=== PATIENT | female | born 1935 | race Caucasian/White ===

== ENCOUNTER 2018-09-07 11:40 | Outpatient (CLI) | payer MEDICARE, SELFPAY ==
[2018-09-07 13:41] LABS: ALT 27 U/L (12-78); AST 22 U/L (15-37); Albumin 3.6 g/dL (3.4-5.0); Alkaline Phosphatase 110 U/L (46-116); Anion Gap 11.2 mmol/L (3-11); BUN 18 mg/dL (7-18); Bilirubin, Total 0.3 mg/dL (0.2-1.0); CO2 24.8 mmol/L (21.0-32.0); CREATININE 1.07 mg/dL (0.55-1.02); Calcium 9.2 mg/dL (8.5-10.1); Chloride 104 mmol/L (98-107); Cholesterol 209 mg/dL (50-200); Estimated GFR 49.34 (mL/min/1.73m2); Glucose 95 mg/dL (70-100); HDL Cholesterol 46 mg/dL (40-60); LDL CHOLESTEROL 87 mg/dL (<100); Potassium 3.7 mmol/L (3.5-5.1); Sodium 140 mmol/L (136-145); Total Protein 7.8 g/dL (6.4-8.2); Triglyceride 461 mg/dL (30-150); Vitamin B12 453 pg/mL (193-986)
== END 2018-09-07 12:00 ==
PROVIDERS: PCP Family Medicine; Visit Provider Family Medicine
DX: I10 Essential (primary) hypertension (principal); E78.5 Hyperlipidemia, unspecified; E53.8 Deficiency of other specified B group vitamins
CPT/HCPCS: 36415; 80053; 80061; 83721; 82607

== ENCOUNTER 2019-05-07 11:02 | Outpatient (CLI) | payer MEDICARE, SELFPAY ==
--- NOTE | 2019-05-07 11:00 | DI.RAD_ITS ---
EXAM: XR WRIST RT COMPLETE INDICATION: pain rt wrist, M25.531, pain unspecified, R52. COMPARISON: No exams were available for comparison TECHNIQUE: 2D digital imaging was performed. FINDINGS: There is [id number] narrowing of the radiocarpal joint space. Chondrocalcinosis is faintly see n. There are degenerative changes at the scaphoid trapezium trapezoid joint as well as at the trapez ium 1st carpal metacarpal joint. IMPRESSION: Degenerative changes greatest at the 1st carpal metacarpal joint.
[2019-05-07 12:06] LABS: Abs Immature Grans 0.03 k/cumm (0.0-0.09); Absolute Basophil Count 0.03 k/cumm (0.0-0.2); Absolute Eosinophil Count 0.23 k/cumm (0.0-0.7); Absolute Lymphocyte Count 2.68 k/cumm (1.2-3.4); Absolute Monocyte Count 0.58 k/cumm (0.11-0.7); Absolute Neutrophil Count 7.31 k/cumm (1.2-6.7); Basophils % 0.3; Eosinophils % 2.1; HCT 40.4 % (36.0-46.0); HGB 13.6 g/dL (12.0-15.5); Immature Grans % 0.3; Lymphocytes % 24.7; Mean Corp. HGB Concentration 33.7 g/dL (32.0-36.0); Mean Corpuscular Volume 83.3 fL (80-95); Mean Platelet Volume 10.4 fL (8.0-11.0); Monocytes % 5.3; Neutrophils % 67.3; Platelet Count 237 x1000/uL (130-400); RBC 4.85 m/cumm (4.00-5.20); RBC Distribution Width 13.4 % (11.7-14.6); White Blood Cell Count 10.86 k/cumm (4.4-10.8)
[2019-05-07 13:18] LABS: ESR 29 mm/hr (0-30)
[2019-05-07 13:22] LABS: Uric Acid 4.8 mg/dL (2.6-6.0)
== END 2019-05-07 11:22 ==
PROVIDERS: PCP Family Medicine; Visit Provider Internal Medicine
DX: M25.531 Pain in right wrist (principal); M18.11 Unilateral primary osteoarthritis of first carpometacarpal joint, right hand; M19.041 Primary osteoarthritis, right hand
CPT/HCPCS: 36415; 85652; 73110; 84550; 85025

== ENCOUNTER 2019-09-11 04:36 | Outpatient (CLI) | payer MEDICARE, SELFPAY ==
[2019-09-11 11:22] LABS: Abs Immature Grans 0.03 k/cumm (0.0-0.09); Absolute Eosinophil Count 0.15 k/cumm (0.0-0.7); Absolute Lymphocyte Count 2.54 k/cumm (1.2-3.4); Basophils % 0.2; Eosinophils % 1.2; HCT 40.7 % (36.0-46.0); HGB 13.3 g/dL (12.0-15.5); Immature Grans % 0.2 %; Lymphocytes % 20.5; Mean Corp. HGB Concentration 32.7 g/dL (32.0-36.0); Mean Corpuscular Hemoglobin 26.9 pg (27.0-33.0); Mean Corpuscular Volume 82.4 fL (80-95); Mean Platelet Volume 9.7 fL (8.0-11.0); Monocytes % 6.4; Neutrophils % 71.5; Platelet Count 315 x1000/uL (130-400); RBC 4.94 m/cumm (4.00-5.20); RBC Distribution Width 13.7 % (11.7-14.6); White Blood Cell Count 12.41 k/cumm (4.4-10.8)
[2019-09-11 11:24] LABS: Absolute Basophil Count 0.02 k/cumm (0.0-0.2); Absolute Monocyte Count 0.79 k/cumm (0.11-0.7); Absolute Neutrophil Count 8.87 k/cumm (1.2-6.7)
[2019-09-11 12:37] LABS: ALT 23 U/L (14-59); AST 16 U/L (15-37); Albumin 3.4 g/dL (3.4-5.0); Alkaline Phosphatase 122 U/L (46-116); Anion Gap 11.9 mmol/L (3-11); BUN 11 mg/dL (7-18); Bilirubin, Total 0.3 mg/dL (0.2-1.0); CO2 24.1 mmol/L (21.0-32.0); Calcium 9.1 mg/dL (8.5-10.1); Calculated LDL 55 mg/dL (<100); Chloride 108 mmol/L (98-107); Cholesterol 155 mg/dL (<200); Estimated GFR 53.21 (mL/min/1.73m2); Glucose 84 mg/dL (74-106); HDL Cholesterol 44 mg/dL (40-60); Potassium 3.8 mmol/L (3.5-5.1); Sodium 144 mmol/L (136-145); Total Protein 7.7 g/dL (6.4-8.2); Triglyceride 284 mg/dL (<150)
[2019-09-11 12:46] LABS: Uric Acid 5.7 mg/dL (2.6-6.0)
[2019-09-11 12:58] LABS: ESR 59 mm/hr (0-30)
== END 2019-09-11 04:56 ==
PROVIDERS: PCP Family Medicine; Visit Provider Family Medicine
DX: E78.5 Hyperlipidemia, unspecified (principal); I10 Essential (primary) hypertension; M25.50 Pain in unspecified joint
CPT/HCPCS: 36415; 80053; 80061; 85652; 84550; 85025; 86140

== ENCOUNTER 2019-10-30 03:19 | Outpatient (CLI) | payer MEDICARE, SELFPAY ==
[2019-10-30 13:09] LABS: Abs Immature Grans 0.05 k/cumm (0.0-0.09); Absolute Basophil Count 0.02 k/cumm (0.0-0.2); Absolute Eosinophil Count 0.11 k/cumm (0.0-0.7); Absolute Lymphocyte Count 1.89 k/cumm (1.2-3.4); Absolute Monocyte Count 0.87 k/cumm (0.11-0.7); Absolute Neutrophil Count 7.53 k/cumm (1.2-6.7); Basophils % 0.2; Eosinophils % 1.1; HCT 42.3 % (36.0-46.0); HGB 13.6 g/dL (12.0-15.5); Immature Grans % 0.5 %; Lymphocytes % 18.1; Mean Corp. HGB Concentration 32.2 g/dL (32.0-36.0); Mean Corpuscular Volume 84.1 fL (80-95); Mean Platelet Volume 9.6 fL (8.0-11.0); Monocytes % 8.3; Neutrophils % 71.8; Platelet Count 240 x1000/uL (130-400); RBC 5.03 m/cumm (4.00-5.20); White Blood Cell Count 10.47 k/cumm (4.4-10.8)
[2019-10-30 13:53] LABS: ESR 48 mm/hr (0-30)
== END 2019-10-30 03:39 ==
PROVIDERS: PCP Family Medicine; Visit Provider Family Medicine
DX: M25.50 Pain in unspecified joint (principal); R70.0 Elevated erythrocyte sedimentation rate
CPT/HCPCS: 36415; 85652; 85025

== ENCOUNTER 2019-11-22 01:31 | Outpatient (CLI) | payer MEDICARE, SELFPAY ==
--- NOTE | 2019-11-22 14:15 | DI.DEXA_ITS ---
EXAM: XR DEXA BONE DENSITY W/WO RICHI CLINICAL HISTORY: CHRONIC PREDNISONE USE, M81.0 OSTEOPOROSIS TECHNIQUE: COMPARISON: No exams were available for comparison FINDINGS: Lateral Spine Image: Unremarkable. No compression deformities identified. Left hip: Total T-Score: -1.9 Total Z-Score: 0.2 T- and Z-scores: Consistent with osteopenia. Lumbar Spine: Total T-Score: -0.9 Total Z-Score: 1.8 T- and Z-scores: Within normal limits. IMPRESSION: No evidence of osteoporosis.
== END 2019-11-22 01:51 ==
PROVIDERS: PCP Family Medicine; Visit Provider Family Medicine
DX: M81.0 Age-related osteoporosis without current pathological fracture (principal); M85.88 Other specified disorders of bone density and structure, other site; Z79.52 Long term (current) use of systemic steroids
CPT/HCPCS: 77080

== ENCOUNTER 2019-12-12 04:21 | Outpatient (CLI) | payer MEDICARE, SELFPAY ==
[2019-12-12 10:29] LABS: ESR 44 mm/hr (0-30)
== END 2019-12-12 04:41 ==
PROVIDERS: PCP Family Medicine; Visit Provider Family Medicine
DX: R70.0 Elevated erythrocyte sedimentation rate (principal)
CPT/HCPCS: 36415; 85652

== ENCOUNTER 2020-03-25 01:27 | Outpatient (CLI) | payer MEDICARE, SELFPAY ==
[2020-03-25 11:05] LABS: ESR 25 mm/hr (0-30)
== END 2020-03-25 01:47 ==
PROVIDERS: PCP Family Medicine; Visit Provider Family Medicine
DX: R70.0 Elevated erythrocyte sedimentation rate (principal)
CPT/HCPCS: 36415; 85652

== ENCOUNTER 2020-07-07 05:15 | Outpatient (CLI) | payer MEDICARE, SELFPAY ==
[2020-07-07 10:49] LABS: ESR 54 mm/hr (0-30)
[2020-07-07 11:18] LABS: Vitamin D 25 Total 21.4 ng/ml (30-100)
== END 2020-07-07 05:35 ==
PROVIDERS: PCP Family Medicine; Visit Provider Family Medicine
DX: R70.0 Elevated erythrocyte sedimentation rate (principal); M25.59 Pain in other specified joint; Z79.52 Long term (current) use of systemic steroids
CPT/HCPCS: 36415; 82306; 85652

== ENCOUNTER 2020-08-21 03:39 | Outpatient (CLI) | payer MEDICARE, SELFPAY ==
[2020-08-21 11:05] LABS: Abs Immature Grans 0.08 10^3/uL (0.0-0.06); Absolute Basophil Count 0.06 10^3/uL (0.0-0.2); Absolute Eosinophil Count 0.16 10^3/uL (0.0-0.7); Absolute Lymphocyte Count 3.97 10^3/uL (1.2-3.4); Absolute Monocyte Count 0.87 10^3/uL (0.1-0.8); Absolute Neutrophil Count 10.44 10^3/uL (1.2-6.7); Basophils % 0.4; HCT 43.7 % (36.0-46.0); HGB 13.7 g/dL (11.2-15.7); Immature Grans % 0.5; Lymphocytes % 25.5; MCH 26.8 pg (27.0-33.0); MCHC 31.4 % (32.0-36.0); MCV 85.4 fL (80-95); MPV 9.2 fL (8.0-11.0); Monocytes % 5.6; Nucleated RBC 0 %; Platelet Count 249 10^3/uL (130-400); RBC 5.12 10^6/uL (3.93-5.22); RDW 14.8 % (11.7-14.6); RDW-SD 46.9 fL; WBC 15.58 10^3/uL (4.4-10.8)
[2020-08-21 11:16] LABS: Bilirubin Negative (Negative); Blood Negative (Negative); Clarity Clear (Clear); Glucose Negative (Negative); Ketones Negative (Negative); Leukocyte Esterase Trace (Negative); Nitrite Positive (Negative); Specific Gravity 1.025 (1.005-1.025); Urobilinogen 0.2 EU/dL (Up TO 0.2); pH 5.5 (5-8)
[2020-08-21 11:32] LABS: Epithelial Cells Few HPF (Negative); RBC Negative HPF (0-2)
[2020-08-21 11:33] LABS: Bacteria Many HPF (Negative); C & S Indicated? Yes; Casts Negative LPF (Negative); Crystals Negative HPF (Negative); Mucus Negative (Negative); Other Cells Negative (Negative)
[2020-08-21 12:03] LABS: ALT 21 U/L (14-59); AST 16 U/L (15-37); Albumin 3.4 g/dL (3.4-5.0); Alkaline Phosphatase 98 U/L (46-116); Anion Gap 10.8 mmol/L (3-11); BUN 16 mg/dL (7-18); Bilirubin, Total 0.4 mg/dL (0.2-1.0); CO2 27.2 mmol/L (21.0-32.0); CREATININE 1.1 mg/dL (0.55-1.02); Calcium 9.3 mg/dL (8.5-10.1); Chloride 100 mmol/L (98-107); Estimated GFR 47.55 (mL/min/1.73m2); Glucose 88 mg/dL (74-106); Potassium 3.5 mmol/L (3.5-5.1); Sodium 138 mmol/L (136-145); Total Protein 7.8 g/dL (6.4-8.2)
[2020-08-21 15:49] LABS: ESR 66 mm/hr (<or=30)
== END 2020-08-21 03:40 | disposition home or self-care (01) ==
LOC: LBO 03:39
PROVIDERS: PCP Family Medicine; Visit Provider Family Medicine
DX: R10.9 Unspecified abdominal pain (principal); R70.0 Elevated erythrocyte sedimentation rate; M25.59 Pain in other specified joint
CPT/HCPCS: 36415; 80053; 85652; 87077; 81003; 81015; 85025; 87086; 87186

== ENCOUNTER 2020-09-22 04:13 | Outpatient (CLI) | payer MEDICARE, SELFPAY ==
[2020-09-22 10:18] LABS: ESR 13 mm//hr (0-30)
== END 2020-09-22 04:14 | disposition home or self-care (01) ==
LOC: LBO 04:13
PROVIDERS: PCP Family Medicine; Visit Provider Family Medicine
DX: M35.3 Polymyalgia rheumatica (principal)
CPT/HCPCS: 36415; 85652

== ENCOUNTER 2020-10-21 03:31 | Outpatient (CLI) | payer MEDICARE, SELFPAY ==
[2020-10-21 10:15] LABS: ESR 17 mm//hr (0-30)
[2020-10-22 13:32] LABS: IgA 456 mg/dL (85-499); Interpretation (See Note); Tissue Transglutaminase IgA <1.2 U/mL (<4.0)
== END 2020-10-21 03:32 | disposition home or self-care (01) ==
LOC: LBO 03:31
PROVIDERS: PCP Family Medicine; Visit Provider Family Medicine
DX: M35.3 Polymyalgia rheumatica (principal); R70.0 Elevated erythrocyte sedimentation rate
CPT/HCPCS: 36415; 82784; 83516; 85652

== ENCOUNTER 2020-11-24 17:06 | Outpatient (REF) | payer MEDICARE, SELFPAY ==
[2020-11-24 18:19] LABS: Bilirubin Negative (Negative); Blood Negative (Negative); Clarity Cloudy (Clear); Glucose Negative (Negative); Ketones Negative (Negative); Leukocyte Esterase Negative (Negative); Nitrite Negative (Negative); Specific Gravity 1.025 (1.005-1.025); Urobilinogen 0.2 EU/dL (Up TO 0.2); pH 5.5 (5-8)
== END 2020-11-24 17:07 | disposition home or self-care (01) ==
LOC: LBN 17:06
PROVIDERS: PCP Family Medicine; Visit Provider Family Medicine
DX: R39.89 Other symptoms and signs involving the genitourinary system (principal)
CPT/HCPCS: 81003

== ENCOUNTER 2020-12-09 01:33 | Outpatient (CLI) | payer MEDICARE, SELFPAY ==
--- NOTE | 2020-12-09 07:45 | DI.CT_ITS ---
Exam(s) CT ABDOMEN PELVIS W EXAM: CT ABDOMEN PELVIS W INDICATION: pelvic pain, unspecified abd pain, R10.9. COMPARISON: No exams were available for comparison TECHNIQUE: FINDINGS: CT examination of the abdomen and pelvis was performed with a bolus infusion of 100 cc of Omnipaque 3 50. Images obtained through the lung bases are unremarkable. The liver is unremarkable in appearance. Gallbladder and bile ducts are CT normal. Pancreas appears normal. Spleen is unremarkable in appearance. Adrenals appear normal. The kidneys are unremarkable except for probable small bilateral parapelvic cysts with no evidence of hydronephrosis, nephrolithiasis, or renal mass.. Urinary bladder unremarkable. Abdominal aorta is of normal diameter and no major vascular abnormality is seen. No abdominal wall hernia. No abdominal or pelvic adenopathy. SYSTEMS ADMINISTRATION ANALYST structures appear intact. Appendix is not specifically visualized but there is no evidence of appendicitis. No evidence of div erticulitis or bowel obstruction. IMPRESSION: Negative CT examination of the abdomen and pelvis. RADIATION DOSE DELIVERED: 1,033.7mGy.cm Total DLP 1,033.7mGy.cm Total DLP RADIATION OPTIMIZATION: All CT scans at this facility use at least one of these dose optimization te chniques: automated exposure control; mA and/or kV adjustment per patient size (includes targeted exa ms where dose is matched to clinical indication); or iterative reconstruction.
[2020-12-09] MEDS: Breeza Beverage 473 ML BTL PO (12:05)
[2020-12-09] MEDS: Omnipaque 350 MG/ML 50 ML BTL IJ (12:06)
[2020-12-09 12:07] LABS: ESR 39 mm/hr (0-30)
[2020-12-09 12:15] LABS: CREATININE 1.1 mg/dL (0.55-1.02); Estimated GFR 47.43 (mL/min/1.73m2)
[2020-12-09] MEDS: Normal Saline Flush 10 ML SYR IVP (13:47)
[2020-12-09] MEDS: Omnipaque 350 MG/ML 100 ML BTL IJ (13:48)
[2020-12-09] MEDS: Normal Saline - Diluent 50 ML VIAL IV (13:49)
== END 2020-12-09 01:53 ==
PROVIDERS: PCP Family Medicine; Visit Provider Family Medicine
DX: R10.2 Pelvic and perineal pain (principal)
CPT/HCPCS: 85652; 74177; 82565; J3490; Q9967

== ENCOUNTER 2021-02-11 01:36 | Outpatient (CLI) | payer MEDICARE, SELFPAY ==
--- NOTE | 2021-02-11 07:30 | DI.RAD_ITS ---
Exam(s) XR HIP PELVIS ADULT BL EXAM: XR HIP PELVIS ADULT BL CLINICAL HISTORY: b/l hip pain,M25.552,M25.551. TECHNIQUE: 2D digital imaging was performed. COMPARISON: No exams were available for comparison FINDINGS: BONES: No acute fracture is present. No bony destructive lesion is seen. JOINTS: No dislocation present. Mild degenerative changes are seen in the hips bilaterally with joint space narrowing and periarticular spurring. SOFT TISSUE: Normal. IMPRESSION: Mild degenerative changes in the hips bilaterally. DATA REPOSITORY: RADIATION DOSE DELIVERED:
--- NOTE | 2021-02-11 07:30 | DI.RAD_ITS ---
Exam(s) XR LUMBAR SPINE COMPLETE EXAM: XR LUMBAR SPINE COMPLETE CLINICAL HISTORY: ACUTE BILAT LOW BACK PAIN,M54.5. TECHNIQUE: 2D digital imaging was performed. COMPARISON: No exams were available for comparison FINDINGS: BONES: No fracture or destructive lesion. Vertebral bodies are unremarkable. Degenerative changes of the facets are seen at L4-5 and L5-S1. DISKS: There is disc space narrowing at L2-L3, L4-L5 and L5-S1. Endplate osteophytes are seen through out the lumbar spine. ALIGNMENT: Lumbar spinal alignment is within normal limits. SOFT TISSUE: Atherosclerosis. IMPRESSION: Ahrv-tz-izffukby degenerative changes in the lumbar spine. DATA REPOSITORY: RADIATION DOSE DELIVERED:
== END 2021-02-11 01:56 ==
PROVIDERS: PCP Family Medicine; Visit Provider Family Medicine
DX: M54.5 Low back pain (principal); M25.551 Pain in right hip; M25.552 Pain in left hip; M43.06 Spondylolysis, lumbar region; M16.0 Bilateral primary osteoarthritis of hip
CPT/HCPCS: 73521; 72110

== ENCOUNTER 2021-10-14 01:48 | Outpatient (CLI) | payer MEDICARE, SELFPAY ==
[2021-10-14 13:56] LABS: ESR 63 mm/hr (0-30)
[2021-10-14 15:15] LABS: ALT 26 U/L (14-59); AST 18 U/L (15-37); Albumin 3.4 g/dL (3.4-5.0); Alkaline Phosphatase 99 U/L (46-116); Anion Gap 12.9 mmol/L (3-11); BUN 27 mg/dL (7-18); Bilirubin, Total 0.3 mg/dL (0.2-1.0); CO2 24.1 mmol/L (21.0-32.0); CREATININE 1.5 mg/dL (0.55-1.02); Calcium 8.8 mg/dL (8.5-10.1); Chloride 103 mmol/L (98-107); Estimated GFR 33.08 (mL/min/1.73m2); Glucose 204 mg/dL (74-106); Potassium 4.3 mmol/L (3.5-5.1); Sodium 140 mmol/L (136-145); TSH (W/Ref FT4) 1.34 uIU/mL (0.36-3.74); Total Protein 7.6 g/dL (6.4-8.2)
== END 2021-10-14 01:49 | disposition home or self-care (01) ==
LOC: LBO 01:48
PROVIDERS: PCP Family Medicine; Visit Provider Family Medicine
DX: I10 Essential (primary) hypertension (principal); M35.3 Polymyalgia rheumatica
CPT/HCPCS: 36415; 80053; 85652; 84443

== ENCOUNTER 2021-10-20 01:36 | Outpatient (CLI) | payer MEDICARE, SELFPAY ==
[2021-10-20 12:00] LABS: ESR 50 mm/hr (0-30)
[2021-10-20 13:01] LABS: Hemoglobin A1C 6.3 % (<5.7)
[2021-10-22 03:54] LABS: Vitamin D 25 Total 32.4 ng/mL (30-100)
== END 2021-10-20 01:37 | disposition home or self-care (01) ==
LOC: LBO 01:37
PROVIDERS: PCP Family Medicine; Visit Provider Family Medicine
DX: M35.3 Polymyalgia rheumatica (principal); R73.09 Other abnormal glucose; R79.89 Other specified abnormal findings of blood chemistry; E55.9 Vitamin D deficiency, unspecified
CPT/HCPCS: 36415; 82306; 85652; 83036

== ENCOUNTER 2022-05-07 01:46 | Outpatient (CLI) | payer MEDICARE, SELFPAY ==
[2022-05-07 11:53] LABS: Absolute Eosinophil Count 0.09 10^3/uL (0.0-0.7); Absolute Lymphocyte Count 2.44 10^3/uL (1.2-3.4); Absolute Monocyte Count 0.73 10^3/uL (0.1-0.8); Absolute Neutrophil Count 10.96 10^3/uL (1.2-6.7); Basophils % 0.3; Eosinophils % 0.6; HCT 41.9 % (36.0-46.0); HGB 13.6 g/dL (11.2-15.7); Immature Grans % 0.7; MCH 26.5 pg (27.0-33.0); MCHC 32.5 % (32.0-36.0); MCV 82 fL (80-95); MPV 9.9 fL (8.0-11.0); Monocytes % 5.1; Neutrophils % 76.3; Platelet Count 231 10^3/uL (130-400); RBC 5.14 10^6/uL (3.93-5.22); RDW 15.6 % (11.7-14.6); RDW-SD 45.8 fL; WBC 14.37 10^3/uL (4.4-10.8)
[2022-05-07 11:54] LABS: Absolute Basophil Count 0.04 10^3/uL (0.0-0.2)
[2022-05-07 12:46] LABS: ALT 22 U/L (14-59); AST 16 U/L (15-37); Albumin 3.5 g/dL (3.4-5.0); Alkaline Phosphatase 82 U/L (46-116); Anion Gap 7.7 mmol/L (3-11); BUN 21 mg/dL (7-18); Bilirubin, Total 0.4 mg/dL (0.2-1.0); C-Reactive Protein 0.91 mg/dL (0.0-0.3); CO2 28.3 mmol/L (21.0-32.0); CREATININE 1.7 mg/dL (0.55-1.02); Calcium 9.4 mg/dL (8.5-10.1); Chloride 100 mmol/L (98-107); Estimated GFR 29.39 (mL/min/1.73m2); Glucose 98 mg/dL (74-106); Potassium 3.8 mmol/L (3.5-5.1); Sodium 136 mmol/L (136-145); Total Protein 7.5 g/dL (6.4-8.2)
== END 2022-05-07 01:47 | disposition home or self-care (01) ==
LOC: LBO 01:46
PROVIDERS: PCP Family Medicine; Visit Provider Internal Medicine Rheumatology
DX: Z79.60 Long term (current) use of unspecified immunomodulators and immunosuppressants (principal); M06.4 Inflammatory polyarthropathy
CPT/HCPCS: 36415; 80053; 85025; 86140

== ENCOUNTER 2022-06-22 12:13 | Outpatient (CLI) | payer MEDICARE, SELFPAY ==
[2022-06-22 09:57] LABS: Abs Immature Grans 0.05 10^3/uL (0.0-0.06); Absolute Basophil Count 0.07 10^3/uL (0.0-0.2); Absolute Eosinophil Count 0.17 10^3/uL (0.0-0.7); Basophils % 0.5; Eosinophils % 1.3; HCT 43.5 % (36.0-46.0); HGB 13.9 g/dL (11.2-15.7); Immature Grans % 0.4; MCH 27.2 pg (27.0-33.0); MCV 85 fL (80-95); Monocytes % 5.9; Neutrophils % 61.9; Platelet Count 222 10^3/uL (130-400); RBC 5.11 10^6/uL (3.93-5.22); RDW 16.3 % (11.7-14.6); WBC 13.32 10^3/uL (4.4-10.8)
[2022-06-22 09:58] LABS: Absolute Monocyte Count 0.79 10^3/uL (0.1-0.8); Absolute Neutrophil Count 8.25 10^3/uL (1.2-6.7)
[2022-06-22 10:38] LABS: ALT 21 U/L (14-59); AST 19 U/L (15-37); Albumin 3.6 g/dL (3.4-5.0); Alkaline Phosphatase 92 U/L (46-116); Anion Gap 7.2 mmol/L (3-11); BUN 19 mg/dL (7-18); Bilirubin, Total 0.4 mg/dL (0.2-1.0); C-Reactive Protein 0.81 mg/dL (0.0-0.3); CO2 27.8 mmol/L (21.0-32.0); CREATININE 1.3 mg/dL (0.55-1.02); Calcium 9.6 mg/dL (8.5-10.1); Chloride 101 mmol/L (98-107); Estimated GFR 40.55 (mL/min/1.73m2); Glucose 96 mg/dL (74-106); Potassium 3.9 mmol/L (3.5-5.1); Sodium 136 mmol/L (136-145)
== END 2022-06-22 12:14 | disposition home or self-care (01) ==
LOC: LBO 12:22
PROVIDERS: PCP Family Medicine; Visit Provider Internal Medicine Rheumatology
DX: M06.4 Inflammatory polyarthropathy (principal); Z79.60 Long term (current) use of unspecified immunomodulators and immunosuppressants
CPT/HCPCS: 36415; 80053; 85025; 86140

== ENCOUNTER 2022-07-20 02:26 | Outpatient (CLI) | payer MEDICARE, SELFPAY ==
--- NOTE | 2022-07-20 | DI.DEXA_ITS ---
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 COMPARISON: Prior DEXA scan performed November 2019. FINDINGS: Performed on a [employer] unit. Lateral image: No compression fracture evident. Lumbar Spine total T-score: -1.0. Prior reading in November 2019 was -0.9. Hip total T-score:-2.2. Prior reading in November 2019 was -1.9 Independent reading at the level of the femoral neck yields T-score of -2.5 Forearm total T-score: -0.5 IMPRESSION: Bone mineral density measures in the osteopenia bordering on osteoporosis range. Fracture risk is mod erate-high. Note: Any spine fracture indicates 5x risk for subsequent spine fracture and 2x risk for subsequent h ip fracture. World Health Organization criteria for BMD interpretation classify patients: Normal...... T- Score at or above -1.0 Osteopenic... T- Score between -1.0 and -2.5 Osteoporosis... T-Score at or below -2.5
== END 2022-07-20 02:46 ==
LOC: DI 02:26
PROVIDERS: PCP Family Medicine; Visit Provider Internal Medicine Rheumatology
DX: Z79.52 Long term (current) use of systemic steroids (principal); Z13.820 Encounter for screening for osteoporosis; M81.0 Age-related osteoporosis without current pathological fracture
CPT/HCPCS: 77080

== ENCOUNTER 2022-08-19 03:11 | Outpatient (CLI) | payer MEDICARE, SELFPAY ==
[2022-08-19 12:18] LABS: Absolute Basophil Count 0.07 10^3/uL (0.0-0.2); Absolute Lymphocyte Count 2.28 10^3/uL (1.2-3.4); Basophils % 0.5; Eosinophils % 0.8; HCT 39.8 % (36.0-46.0); HGB 13.1 g/dL (11.2-15.7); Immature Grans % 0.8; Lymphocytes % 17.4; MCHC 32.9 % (32.0-36.0); MCV 88 fL (80-95); MPV 9.9 fL (8.0-11.0); Monocytes % 4.4; Neutrophils % 76.1; Platelet Count 221 10^3/uL (130-400); RBC 4.52 10^6/uL (3.93-5.22); RDW 15.5 % (11.7-14.6); RDW-SD 48.9 fL; WBC 13.09 10^3/uL (4.4-10.8)
[2022-08-19 12:19] LABS: Absolute Monocyte Count 0.58 10^3/uL (0.1-0.8); Absolute Neutrophil Count 9.96 10^3/uL (1.2-6.7)
[2022-08-19 13:08] LABS: ALT 21 U/L (14-59); AST 12 U/L (15-37); Albumin 3.6 g/dL (3.4-5.0); Alkaline Phosphatase 95 U/L (46-116); Anion Gap 11.6 mmol/L (3-11); BUN 20 mg/dL (7-18); Bilirubin, Total 0.3 mg/dL (0.2-1.0); CO2 25.4 mmol/L (21.0-32.0); CREATININE 1.3 mg/dL (0.55-1.02); Calcium 9.7 mg/dL (8.5-10.1); Chloride 103 mmol/L (98-107); Estimated GFR 40.55 (mL/min/1.73m2); Glucose 113 mg/dL (74-106); Potassium 3.8 mmol/L (3.5-5.1); Sodium 140 mmol/L (136-145)
== END 2022-08-19 03:12 | disposition home or self-care (01) ==
LOC: LBO 03:11
PROVIDERS: PCP Family Medicine; Visit Provider Internal Medicine Rheumatology
DX: M06.4 Inflammatory polyarthropathy (principal); Z79.60 Long term (current) use of unspecified immunomodulators and immunosuppressants
CPT/HCPCS: 36415; 80053; 85025; 86140

== ENCOUNTER 2022-10-27 03:13 | Outpatient (CLI) | payer MEDICARE, SELFPAY ==
[2022-10-27 13:21] LABS: Abs Immature Grans 0.04 10^3/uL (0.0-0.06); Absolute Basophil Count 0.06 10^3/uL (0.0-0.2); Absolute Eosinophil Count 0.12 10^3/uL (0.0-0.7); Absolute Lymphocyte Count 2.07 10^3/uL (1.2-3.4); Absolute Monocyte Count 0.62 10^3/uL (0.1-0.8); Absolute Neutrophil Count 7.77 10^3/uL (1.2-6.7); Basophils % 0.6; Eosinophils % 1.1; HCT 39.4 % (36.0-46.0); HGB 12.7 g/dL (11.2-15.7); Immature Grans % 0.4; Lymphocytes % 19.4; MCH 27.9 pg (27.0-33.0); MCHC 32.2 % (32.0-36.0); MCV 87 fL (80-95); MPV 9.8 fL (8.0-11.0); Monocytes % 5.8; Neutrophils % 72.7; Platelet Count 263 10^3/uL (130-400); RBC 4.55 10^6/uL (3.93-5.22); RDW 13.8 % (11.7-14.6); RDW-SD 43.7 fL; WBC 10.68 10^3/uL (4.4-10.8)
[2022-10-27 13:45] LABS: ALT 27 U/L (14-59); AST 14 U/L (15-37); Albumin 3.1 g/dL (3.4-5.0); Alkaline Phosphatase 95 U/L (46-116); Anion Gap 8.3 mmol/L (3-11); BUN 21 mg/dL (7-18); Bilirubin, Total 0.2 mg/dL (0.2-1.0); C-Reactive Protein 0.94 mg/dL (0.0-0.3); CO2 24.7 mmol/L (21.0-32.0); CREATININE 1.4 mg/dL (0.55-1.02); Calcium 9.3 mg/dL (8.5-10.1); Chloride 104 mmol/L (98-107); Estimated GFR 36.87 (mL/min/1.73m2); Glucose 194 mg/dL (74-106); Sodium 137 mmol/L (136-145); Total Protein 7.4 g/dL (6.4-8.2)
== END 2022-10-27 03:14 | disposition home or self-care (01) ==
LOC: LBO 03:13
PROVIDERS: PCP Family Medicine; Visit Provider Internal Medicine Rheumatology
DX: M06.4 Inflammatory polyarthropathy (principal)
CPT/HCPCS: 36415; 80053; 85025; 86140

== ENCOUNTER 2022-12-03 02:55 | Outpatient (CLI) | payer MEDICARE, SELFPAY ==
[2022-12-03 13:21] LABS: Abs Immature Grans 0.04 10^3/uL (0.0-0.06); Absolute Basophil Count 0.05 10^3/uL (0.0-0.2); Absolute Lymphocyte Count 2.16 10^3/uL (1.2-3.4); Absolute Monocyte Count 0.63 10^3/uL (0.1-0.8); Basophils % 0.4; Eosinophils % 0.8; HCT 40.9 % (36.0-46.0); HGB 13.3 g/dL (11.2-15.7); Immature Grans % 0.3; Lymphocytes % 17.9; MCH 27.9 pg (27.0-33.0); MCHC 32.5 % (32.0-36.0); MCV 86 fL (80-95); MPV 9.9 fL (8.0-11.0); Monocytes % 5.2; Neutrophils % 75.4; Platelet Count 239 10^3/uL (130-400); RBC 4.76 10^6/uL (3.93-5.22); RDW 14.3 % (11.7-14.6); WBC 12.07 10^3/uL (4.4-10.8)
[2022-12-03 14:09] LABS: ALT 24 U/L (14-59); AST 17 U/L (15-37); Albumin 3.7 g/dL (3.4-5.0); Alkaline Phosphatase 97 U/L (46-116); Anion Gap 11.9 mmol/L (3-11); BUN 20 mg/dL (7-18); Bilirubin, Total 0.3 mg/dL (0.2-1.0); C-Reactive Protein 0.45 mg/dL (0.0-0.3); CO2 24.1 mmol/L (21.0-32.0); CREATININE 1.6 mg/dL (0.55-1.02); Calcium 9.5 mg/dL (8.5-10.1); Chloride 104 mmol/L (98-107); Estimated GFR 31.41 (mL/min/1.73m2); Glucose 104 mg/dL (74-106); Sodium 140 mmol/L (136-145)
== END 2022-12-03 02:56 | disposition home or self-care (01) ==
LOC: LBO 02:56
PROVIDERS: PCP Family Medicine; Visit Provider Internal Medicine Rheumatology
DX: M06.4 Inflammatory polyarthropathy (principal); Z79.60 Long term (current) use of unspecified immunomodulators and immunosuppressants
CPT/HCPCS: 36415; 80053; 85025; 86140

== ENCOUNTER 2023-04-07 03:58 | Outpatient (CLI) | payer MEDICARE, SELFPAY ==
[2023-04-07 10:25] LABS: Abs Immature Grans 0.03 10^3/uL (0.0-0.06); Absolute Basophil Count 0.05 10^3/uL (0.0-0.2); Absolute Eosinophil Count 0.16 10^3/uL (0.0-0.7); Absolute Lymphocyte Count 2.59 10^3/uL (1.2-3.4); Absolute Monocyte Count 0.65 10^3/uL (0.1-0.8); Absolute Neutrophil Count 6.42 10^3/uL (1.2-6.7); Basophils % 0.5; Eosinophils % 1.6; HCT 40.5 % (36.0-46.0); Immature Grans % 0.3; Lymphocytes % 26.2; MCH 27.7 pg (27.0-33.0); MCHC 32.1 % (32.0-36.0); MCV 86 fL (80-95); MPV 9.9 fL (8.0-11.0); Monocytes % 6.6; Neutrophils % 64.8; Platelet Count 288 10^3/uL (130-400); RBC 4.69 10^6/uL (3.93-5.22); RDW 13.8 % (11.7-14.6); RDW-SD 43.1 fL
[2023-04-07 11:22] LABS: ALT 21 U/L (14-59); AST 19 U/L (15-37); Albumin 3.5 g/dL (3.4-5.0); Alkaline Phosphatase 78 U/L (46-116); Anion Gap 7.6 mmol/L (3-11); BUN 17 mg/dL (7-18); Bilirubin, Total 0.4 mg/dL (0.2-1.0); C-Reactive Protein 0.86 mg/dL (0.0-0.3); CO2 24.4 mmol/L (21.0-32.0); CREATININE 1.2 mg/dL (0.55-1.02); Calcium 9.4 mg/dL (8.5-10.1); Chloride 104 mmol/L (98-107); Estimated GFR 44.36 (mL/min/1.73m2); Glucose 98 mg/dL (74-106); Potassium 3.8 mmol/L (3.5-5.1); Sodium 136 mmol/L (136-145)
== END 2023-04-07 03:59 | disposition home or self-care (01) ==
LOC: LBO 03:58
PROVIDERS: PCP Family Medicine; Visit Provider Internal Medicine Rheumatology
DX: Z79.899 Other long term (current) drug therapy (principal); M06.4 Inflammatory polyarthropathy
CPT/HCPCS: 36415; 80053; 85025; 86140

== ENCOUNTER 2023-05-11 09:59 | Outpatient (CLI) | payer MEDICARE, SELFPAY ==
[2023-05-11 12:24] LABS: Abs Immature Grans 0.03 10^3/uL (0.0-0.06); Absolute Basophil Count 0.06 10^3/uL (0.0-0.2); Absolute Eosinophil Count 0.18 10^3/uL (0.0-0.7); Absolute Lymphocyte Count 2.71 10^3/uL (1.2-3.4); Absolute Monocyte Count 0.67 10^3/uL (0.1-0.8); Absolute Neutrophil Count 6.78 10^3/uL (1.2-6.7); Basophils % 0.6; Eosinophils % 1.7; HCT 41.3 % (36.0-46.0); HGB 12.9 g/dL (11.2-15.7); Immature Grans % 0.3; MCH 27.6 pg (27.0-33.0); MCHC 31.2 % (32.0-36.0); MCV 88 fL (80-95); MPV 10.9 fL (8.0-11.0); Monocytes % 6.4; Platelet Count 273 10^3/uL (130-400); RBC 4.67 10^6/uL (3.93-5.22); RDW 13.8 % (11.7-14.6); RDW-SD 44.2 fL; WBC 10.43 10^3/uL (4.4-10.8)
[2023-05-11 12:31] LABS: Anion Gap 7.8 mmol/L (3-11); BUN 22 mg/dL (7-18); C-Reactive Protein 1.25 mg/dL (0.0-0.3); CO2 28.2 mmol/L (21.0-32.0); CREATININE 1.4 mg/dL (0.55-1.02); Calcium 10.4 mg/dL (8.5-10.1); Chloride 104 mmol/L (98-107); Estimated GFR 36.87 (mL/min/1.73m2); Glucose 103 mg/dL (74-106); Sodium 140 mmol/L (136-145)
== END 2023-05-11 10:00 | disposition home or self-care (01) ==
LOC: LOS 10:06
PROVIDERS: PCP Family Medicine; Visit Provider Internal Medicine Rheumatology
DX: M06.4 Inflammatory polyarthropathy (principal); Z79.899 Other long term (current) drug therapy
CPT/HCPCS: 36415; 80048; 84550; 85025; 86140

== ENCOUNTER 2023-06-10 11:21 | Emergency (ER) | payer MEDICARE, SELFPAY ==
--- NOTE | 2023-06-10 11:15 | DI.RAD_ITS ---
Exam(s) XR SHOULDER RT COMPLETE 2+V XR HUMERUS RT EXAM: XR SHOULDER RT COMPLETE 2+V CLINICAL HISTORY: fall concern for prox hum fracture. TECHNIQUE: 2D digital imaging was performed. Five views. COMPARISON: CR XR HUMERUS RT from 06/10/2023 FINDINGS: BONES: Fracture proximal humeral shaft with impaction and some superior displacement of the shaft wit h respect to the head. No additional fractures identified. No bony destructive lesion is seen. JOINTS: No dislocation present. SOFT TISSUE: Normal. No visible pneumothorax. IMPRESSION: Proximal humeral fracture. DATA REPOSITORY: RADIATION DOSE DELIVERED:
--- NOTE | 2023-06-10 11:15 | DI.RAD_ITS ---
Exam(s) XR FOREARM RT EXAM: XR FOREARM RT CLINICAL HISTORY: fall, arm pain. TECHNIQUE: 2D digital imaging was performed. Two views. COMPARISON: CR XR DEXA BONE DENSITY W/WO RICHI from 07/20/2022 FINDINGS: BONES: No acute fracture is present. No bony destructive lesion is seen. Visualized portion of elbow and wrist joints are unremarkable. SOFT TISSUE: Normal. IMPRESSION: Unremarkable radiographs of the left forearm. DATA REPOSITORY: RADIATION DOSE DELIVERED:
[2023-06-10 11:25] VITALS: BP 198/73; PULSE 80; RESP 15; TEMP 36.4; O2SAT 96
--- NOTE | 2023-06-10 11:31 | W.ED.GENAD ---
Discharge Plan Disposition Patient Disposition: Home Condition: Stable Discharge Details Clinical Impression: Fracture of proximal humerus Primary Care Provider: Evangelina Cerrato ED Provider: Daljit Harding Home Meds and New Rx's Prescriptions: New lidocaine [Lidoderm] 5 % adhesive patch,medicated 1 patch topical DAILY Qty: 15 0RF Rx Instructions: leave on most painful area for up to 12 hrs cyclobenzaprine 5 mg tablet 5 mg PO QHS PRN (Reason: muscle spasm) Qty: 5 0RF No Action leucovorin calcium 5 mg tablet 10 mg PO .qFriday Rasuvo (PF) 10 mg/0.2 mL auto-injector 12.5 mg subcut .qFriday prednisone 1 mg tablet 2 mg PO DAILY losartan 50 mg tablet 50 mg PO DAILY Qty: 90 4RF cyanocobalamin (vitamin B-12) [Vitamin B-12] 1,000 MCG tablet 1,000 mcg PO DAILY acetaminophen [Tylenol Extra Strength] 500 mg tablet 1,000 mg PO TID PRN amlodipine 5 mg tablet 5 mg PO DAILY Qty: 90 4RF Discharge Instructions Instructions: Arm Fracture in Adults (ED) Additional Instructions: Follow-up closely with orthopedic team. Use sling as directed. Return to the emergency department for any worsening symptoms. Medical Decision Making 87-year-old female presents after mechanical fall from chair in the kitchen, fell onto her right shoulder, also hit her head, no loss of conscious, no vomiting no headache. Proximal right humerus discomfort. Patient's right upper extremity is in a sling, neurovascular exam intact, also has mild forearm discomfort. Likely proximal humerus fracture low suspicion for dislocation. Patient is alert oriented no midline spinal tenderness, low suspicion for skull fracture or intracerebral hemorrhage. Resting comfortably in immobilization. Will obtain x-rays. Likely close orthopedic follow-up. 12: 31 patient resting comfortably no acute distress neurovascular exam of limb intact. Proximal humerus fracture on x-ray. Will place in sling and given orthopedic follow-up. HPI General Date/Time Provider Initiated Documentation: 06/10/23 11:24. HPI Narrative: 87-year-old female presents after mechanical slip and fall from chair in kitchen, fell onto her right shoulder did hit her head without loss of conscious, pain to proximal right shoulder. Given analgesia anti-inflammatory in route by EMS Related Data Home Medications Medication Instructions Recorded Confirmed cyanocobalamin (vitamin B-12) 1,000 mcg PO DAILY 07/16/14 06/10/23 1,000 mcg tablet (Vitamin B-12) acetaminophen 500 mg tablet 1,000 mg PO TID PRN 09/07/18 06/10/23 (Tylenol Extra Strength) leucovorin calcium 5 mg tablet 10 mg PO .qFriday 09/30/22 06/10/23 amlodipine 5 mg tablet 5 mg PO DAILY #90 tab-caps 12/17/22 06/10/23 losartan 50 mg tablet 50 mg PO DAILY #90 tabs 05/02/23 06/10/23 methotrexate (PF) 10 mg/0.2 mL 12.5 mg subcut .qFriday 05/02/23 06/10/23 subcutaneous auto-injector (Rasuvo (PF)) prednisone 1 mg tablet 2 mg PO DAILY 05/02/23 06/10/23 cyclobenzaprine 5 mg tablet 5 mg PO QHS PRN muscle spasm #5 06/10/23 tabs lidocaine 5 % topical patch 1 patch topical DAILY #15 ea 06/10/23 (Lidoderm) Previous Rx's Medication Instructions Recorded amlodipine 5 mg tablet 5 mg PO DAILY #90 tab-caps 12/17/22 losartan 50 mg tablet 50 mg PO DAILY #90 tabs 05/02/23 cyclobenzaprine 5 mg tablet 5 mg PO QHS PRN muscle spasm #5 06/10/23 tabs lidocaine 5 % topical patch 1 patch topical DAILY #15 ea 06/10/23 (Lidoderm) Allergies Allergy/AdvReac Type Severity Reaction Status Date / Time No Known Allergies Allergy Verified 06/10/23 11:33 General Stated Complaint: Orthopedic HUA: 3 Review of Systems Narrative: Review of Systems Constitutional: negative Eyes: negative ENT: negative Cardiovascular: negative Respiratory: negative Gastrointestinal: negative : negative Musculoskeletal: Arm pain Skin: negative Neurologic: negative Psych: negative PFSH All Active Problems (Updated 06/10/23 @ 12:33 by Daljit Harding MD) Fracture of proximal humerus (Acute) Inflammatory polyarthritis (Acute) Vitamin D deficiency (Acute) Elevated serum creatinine (Acute) Elevated glucose (Acute) Hip pain, bilateral (Acute) Acute bilateral low back pain (Acute) Pelvic pain (Acute) 11/2020. Nl Pelvic/Abd CT scan. 01/2021. Nl pelvic exam. No prolapse. Polymyalgia rheumatica (Acute) UTI (urinary tract infection) (Acute) Abdominal pain (Acute) Elevated sed rate (Acute) Arthralgia (Acute) URI (upper respiratory infection) (Acute) Wrist arthritis (Acute) Knee pain (Acute) Neck pain (Acute 05/12/00) Other specified disease of nail (Acute) Trochanteric bursitis (Acute 07/01/15) Cheek mass (Acute) Arm skin lesion, left (Acute 02/07/18) B12 deficiency (Chronic 02/13/14) Essential hypertension (Chronic) definitely has white coat hypertension Hyperlipidemia (Chronic) elevated triglycerides Medical History (Updated 06/10/23 @ 12:33 by Daljit Harding MD) Chronic sinusitis Elevated C-reactive protein (11/24/17) Herpes zoster (04/13/11) Intussusception of intestine (05/12/83) Other specified 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 C7-8 neuropathy Surgical History (Updated 05/28/19 @ 09:06 by Evangelina Cerrato [place], [place]) History of bilateral ligation of fallopian tubes History of cataract removal with insertion of prosthetic lens (12/10/14) History of colectomy History of bilateral tubal ligation History of colon resection 06/13/83 H/O cataract removal with insertion of prosthetic lens 12/10/14 O.D. 12/24/[address] 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 BRITO; RIGHT EYE 12/24/14; DR. BRITO; LEFT EYE Family History (Updated 05/19/21 @ 16:22 by Renee Jon) Mother , OLD AGE at age 93. Essential hypertension Dementia Father , 90 Stroke Acute cholecystitis Sister No problems noted. Maternal Grandfather , 60s Heart disease Paternal Grandfather , 70s Stroke Maternal Grandmother Colon cancer Paternal Grandmother Stroke Sister , 53 Breast cancer Sister No problems noted. Sister No problems noted. Sister Asthma Brother No problems noted. Brother No problems noted. Son Cancer Daughter No problems noted. Daughter No problems noted. Social History (Updated 05/19/21 @ 16:21 by Renee Jon) Smoking/Tobacco Use Status: Never Second Hand Exposure: No Smoking risk assessment performed?: Yes Alcohol Intake: never Drug use: Never Substance use type: does not use Caregiver/Support person: No Household members: spouse Housing: house Number of Children: 2 Communication Needs: None Do you need help understanding health information?: Often Pets and animals: No Sexually active: No Do you think of yourself as: straight/heterosexual Current gender identity: female What is your relationship status?: How often do you talk on the phone with friends or family?: three or more times per week How often do you get together with friends or relatives?: three or more times per week How often do you attend zoroastrian or buddhist services?: 4 or more times per year Do you belong to any clubs or organized social groups?: no Panel score (0-1 are the most socially isolated patients): 3 What type of physical activity do you participate in: walking Duration: 60-90 minutes/day Frequency: daily Payton/Latter Day: Cheondoism Special payton needs: No Agree to transfusion: No Seatbelt use: always Helmet use: No Drive intox or ride w/intox speedboat driver: No Do you feel safe at home: Yes Do you feel safe in your relationship?: Yes Exam Narrative Exam Narrative: Physical Examination General: alert, awake, cooperative, resting comfortably, no acute distress HEENT: normocephalic, atraumatic; PERRL, EOM intact, conjunctiva normal; no nasal discharge; moist mucous membranes, oral and pharyngeal mucosa normal, tolerating secretions Neck: supple, trachea midline; full ROM Chest: normal to inspection Respiratory: normal respiratory effort, speaking in full sentences, clear to auscultation, no wheezing, rales or rhonchi Cardiac: regular rate, regular rhythm, S1S2 intact, no murmurs rubs or gallops GI: abdomen soft, non-tender, non-distended; no palpable mass or hepatosplenomegaly Back: No midline spinal tenderness Skin: no lesions, rashes or trauma appreciated Neuro: AAOx3, normal speech, moving all extremities Extremities: Right upper extremity in sling, tenderness to proximal humerus, glenoid appears full, no elbow or wrist discomfort however slight forearm discomfort, radial pulse intact soft compartments, median radial ulnar nerve distribution sensory exam intact, warm well-perfused extremity, flexion extension fingers hand and wrist intact. Psych: Appropriate mood and affect Course Vital Signs Vital signs: Vital Signs Temperature 36.4 C L 06/10/23 11:25 Pulse 80 06/10/23 11:25 Respiratory Rate 15 06/10/23 11:25 Blood Pressure 198/73 H 06/10/23 11:25 Pulse Oximetry 96 06/10/23 11:25 Temperature 36.4 C L 06/10/23 11:25 Temperature Source Oral 06/10/23 11:25 Pulse 80 06/10/23 11:25 Respiratory Rate 15 06/10/23 11:25 Blood Pressure 198/73 H 06/10/23 11:25 Blood Pressure Position Sitting 06/10/23 11:25 Pulse Oximetry 96 06/10/23 11:25 Oxygen Delivery Method Room Air 06/10/23 11:25 Oxygen Flow Rate 0 06/10/23 11:25 Pain Level 8 06/10/23 11:25
== END 2023-06-10 12:56 | disposition home or self-care (01) ==
PROVIDERS: Emergency Provider Emergency Medicine; PCP Family Medicine
DX: S42.201A Unspecified fracture of upper end of right humerus, initial encounter for closed fracture (principal); W07.XXXA Fall from chair, initial encounter
CPT/HCPCS: 99284; 73030; 73060; 73090

== ENCOUNTER → 2023-06-14 09:45 | Outpatient (CLI) | payer MEDICARE, SELFPAY ==
--- NOTE | 2023-06-14 08:45 | DI.CT_ITS ---
Exam(s) CT UPPER EXTREMITY RT WO EXAM: CT UPPER EXTREMITY RT WO CLINICAL HISTORY: FRACTURE proximal humerus,s42.209a. TECHNIQUE: Imaging Protocol: Axial computed tomography images with coronal and sagittal reformatted images were created and reviewed. COMPARISON: CR XR SHOULDER RT COMPLETE 2+V from 06/10/2023 FINDINGS: Bones: There is a comminuted fracture involving the proximal humerus. The fracture involves the diane gical neck with marked impaction of the fracture. The fracture extends proximally to involve the gre ater tuberosity. There are degenerative changes seen at the acromioclavicular and glenohumeral joint s. On the coronal view, there is a lucency in the superior aspect of the acromion suspicious for non displaced fracture. (Series 3, image 131). There are degenerative changes seen in the visualized ce rvical and thoracic spine. No lytic or sclerotic lesions are identified. Soft Tissues: There is edema seen in the soft tissues of the right shoulder. There is nodularity at the superior medial aspect of the right upper lobe. An infectious or inflammatory process should be considered. IMPRESSION: 1. Comminuted impacted fracture involving the proximal right humerus involving the surgical neck and the greater tuberosity as described. 2. Lucency on the superior aspect of the acromion suspicious for nondisplaced fracture. 3. Nodularity seen in the superior medial aspect of the right upper lobe. Infectious or inflammatory process should be considered. A follow-up CT scan of the chest in 1 month should be considered for further evaluation. Unexpected findings RADIATION DOSE DELIVERED: Total DLP Total DLP DATA REPOSITORY: All CT scans at this facility are submitted to the National Radiology Data Registry (NRDR) Dose Index Registry (DIR) with the [employer] (ACR). RADIATION OPTIMIZATION: All CT scans at this facility use at least one of these dose optimization te chniques: automated exposure control; mA and/or kV adjustment per patient size (includes targeted exa ms where dose is matched to clinical indication); or iterative reconstruction.
== END ==
PROVIDERS: PCP Family Medicine; Visit Provider Student in an Organized Health Care Education/Training Program
DX: S42.354A Nondisplaced comminuted fracture of shaft of humerus, right arm, initial encounter for closed fracture (principal); X58.XXXA Exposure to other specified factors, initial encounter
CPT/HCPCS: 73200

== ENCOUNTER → 2023-06-15 10:39 | Outpatient (BNVA) | payer MEDICARE, SELFPAY | PROVIDERS: PCP Family Medicine; Referring Provider Family Medicine; Visit Provider Student in an Organized Health Care Education/Training Program | DX: S42.201A Unspecified fracture of upper end of right humerus, initial encounter for closed fracture (principal); W19.XXXA Unspecified fall, initial encounter | CPT/HCPCS: 99214 ==

== ENCOUNTER 2023-06-29 15:52 | Outpatient (CLI) | payer MEDICARE, SELFPAY ==
--- NOTE | 2023-06-29 10:20 | DI.RAD_ITS ---
Exam(s) XR SHOULDER RT COMPLETE 2+V EXAM: XR SHOULDER RT COMPLETE 2+V CLINICAL HISTORY: F/U FRACTURE. TECHNIQUE: 2D digital imaging was performed. COMPARISON: CR XR SHOULDER RT COMPLETE 2+V from 06/10/2023 FINDINGS: Two views. The impacted fracture of the humeral neck is again noted, unchanged. There is no dislocation of the glenohumeral joint. Subacromial space is not diminished and there are no bone fragments in the subac romial space. The inferior half of the greater tuberosity is also involved but not displaced. IMPRESSION: Stable appearance DATA REPOSITORY: RADIATION DOSE DELIVERED:
== END 2023-06-29 15:53 | disposition home or self-care (01) ==
LOC: DIORS 15:52
PROVIDERS: PCP Family Medicine; Referring Provider Family Medicine; Visit Provider Student in an Organized Health Care Education/Training Program
DX: S42.201D Unspecified fracture of upper end of right humerus, subsequent encounter for fracture with routine healing; X58.XXXD Exposure to other specified factors, subsequent encounter
CPT/HCPCS: 99213; 73030

== ENCOUNTER → 2023-07-08 15:09 | Outpatient (CLI) | payer MEDICARE, SELFPAY ==
--- NOTE | 2023-07-08 13:00 | DI.RAD_ITS ---
Exam(s) XR THORACIC SPINE COMPLETE EXAM: XR THORACIC SPINE COMPLETE CLINICAL HISTORY: thoracic back pain over T6, M54.6. TECHNIQUE: 2D digital imaging was performed. Three views. COMPARISON: CR THORACIC SPINE from 10/30/2010 FINDINGS: BONES: There is no fracture or destructive lesion. The vertebral bodies and posterior elements are un remarkable. ALIGNMENT: Within normal limits. DISKS: Small endplate osteophytes in the mid and lower thoracic spine. Mild narrowing of the anterio r disc spaces. SOFT TISSUE: Visualized lungs are clear. IMPRESSION: Mild degenerative changes. No acute abnormality. DATA REPOSITORY: RADIATION DOSE DELIVERED:
--- NOTE | 2023-07-08 13:00 | DI.RAD_ITS ---
Exam(s) XR CHEST 2V PA LATERAL EXAM: XR CHEST 2V PA LATERAL CLINICAL HISTORY: chest pain / back pain thoracic pain, M54.6 TECHNIQUE: 2D digital imaging was performed. COMPARISON: CR THORACIC SPINE from 10/30/2010 CR XR LUMBAR SPINE COMPLETE from 02/11/2021 CR XR DEXA BONE DENSITY W/WO RICIH from 07/20/2022 FINDINGS: HEART: Normal size. Aorta: Tortuous PULMONARY VASCULATURE: Normal. LUNGS: Clear. PLEURAL SPACE: No pleural effusion or pneumothorax. BONE:Right proximal humeral fracture. No thoracic compression fractures. Minimal degenerative whitman es. No scoliosis. Soft tissues: Unremarkable. IMPRESSION: No acute abnormality. DATA REPOSITORY: RADIATION DOSE DELIVERED:
== END ==
PROVIDERS: PCP Family Medicine; Visit Provider Family Medicine
DX: M54.6 Pain in thoracic spine (principal); R07.9 Chest pain, unspecified
CPT/HCPCS: 71046; 72072

== ENCOUNTER 2023-07-20 14:00 | Outpatient (CLI) | payer MEDICARE, SELFPAY ==
--- NOTE | 2023-07-20 11:15 | DI.RAD_ITS ---
Exam(s) XR SHOULDER RT COMPLETE 2+V EXAM: XR SHOULDER RT COMPLETE 2+V CLINICAL HISTORY: F/U FRACTURE. TECHNIQUE: 2D digital imaging was performed. COMPARISON: CR XR SHOULDER RT COMPLETE 2+V from 06/29/2023 FINDINGS: Two views. There is stable position/alignment the fracture site in the humeral head/neck. No further displaceme nt nor further impaction. There is no dislocation nor subluxation of the glenohumeral joint and the subacromial space appears unremarkable with no new fracture fragments in the space evident. IMPRESSION: Stable appearance at the fracture site. DATA REPOSITORY: RADIATION DOSE DELIVERED:
== END 2023-07-20 14:01 | disposition home or self-care (01) ==
LOC: DIORS 14:00
PROVIDERS: PCP Family Medicine; Visit Provider Student in an Organized Health Care Education/Training Program
DX: S42.201D Unspecified fracture of upper end of right humerus, subsequent encounter for fracture with routine healing (principal); X58.XXXD Exposure to other specified factors, subsequent encounter
CPT/HCPCS: 99213; 73030

== ENCOUNTER 2023-08-11 15:26 | Outpatient (REF) | payer MEDICARE, SELFPAY | END 2023-08-11 15:27 | disposition home or self-care (01) | LOC: LBN 15:26 | PROVIDERS: PCP Family Medicine; Referring Provider Nurse Practitioner Family; Visit Provider Nurse Practitioner Family | DX: J02.9 Acute pharyngitis, unspecified (principal) | CPT/HCPCS: 87070 ==

== ENCOUNTER 2023-08-15 05:24 | Outpatient (CLI) | payer MEDICARE, SELFPAY ==
[2023-08-15 12:51] LABS: Abs Immature Grans 0.08 10^3/uL (0.0-0.06); Absolute Basophil Count 0.04 10^3/uL (0.0-0.2); Absolute Eosinophil Count 0.18 10^3/uL (0.0-0.7); Absolute Monocyte Count 0.68 10^3/uL (0.1-0.8); Absolute Neutrophil Count 6.06 10^3/uL (1.2-6.7); Basophils % 0.4; Eosinophils % 1.9; HCT 38.9 % (36.0-46.0); HGB 12.4 g/dL (11.2-15.7); Immature Grans % 0.8; Lymphocytes % 26.2; MCH 27.6 pg (27.0-33.0); MCHC 31.9 % (32.0-36.0); MCV 86 fL (80-95); MPV 10.4 fL (8.0-11.0); Monocytes % 7.1; Neutrophils % 63.6; Platelet Count 287 10^3/uL (130-400); RDW-SD 42.9 fL; WBC 9.54 10^3/uL (4.4-10.8)
[2023-08-15 13:10] LABS: ALT 27 U/L (14-59); AST 19 U/L (15-37); Albumin 3.2 g/dL (3.4-5.0); Alkaline Phosphatase 95 U/L (46-116); Anion Gap 12.1 mmol/L (3-11); BUN 33 mg/dL (7-18); Bilirubin, Total 0.3 mg/dL (0.2-1.0); C-Reactive Protein 0.51 mg/dL (<or=0.5); CO2 22.9 mmol/L (21.0-32.0); Calcium 9.7 mg/dL (8.5-10.1); Chloride 106 mmol/L (98-107); Estimated GFR 24.03 (mL/min/1.73m2); Glucose 98 mg/dL (74-106); Potassium 3.8 mmol/L (3.5-5.1); Sodium 141 mmol/L (136-145); Total Protein 7.4 g/dL (6.4-8.2)
== END 2023-08-15 05:25 | disposition home or self-care (01) ==
LOC: LOS 05:24
PROVIDERS: PCP Family Medicine; Visit Provider Internal Medicine Rheumatology
DX: M06.4 Inflammatory polyarthropathy (principal); Z79.899 Other long term (current) drug therapy
CPT/HCPCS: 36415; 80053; 85025; 86140

== ENCOUNTER 2023-08-22 03:29 | Outpatient (CLI) | payer MEDICARE, SELFPAY ==
[2023-08-22 13:07] LABS: Abs Immature Grans 0.02 10^3/uL (0.0-0.06); Absolute Basophil Count 0.04 10^3/uL (0.0-0.2); Absolute Eosinophil Count 0.13 10^3/uL (0.0-0.7); Absolute Lymphocyte Count 2.38 10^3/uL (1.2-3.4); Absolute Monocyte Count 0.64 10^3/uL (0.1-0.8); Absolute Neutrophil Count 5.84 10^3/uL (1.2-6.7); Basophils % 0.4; Eosinophils % 1.4; HCT 37.7 % (36.0-46.0); HGB 12.1 g/dL (11.2-15.7); Immature Grans % 0.2; Lymphocytes % 26.3; MCH 27.6 pg (27.0-33.0); MCHC 32.1 % (32.0-36.0); MCV 86 fL (80-95); MPV 10.6 fL (8.0-11.0); Monocytes % 7.1; Neutrophils % 64.6; Platelet Count 259 10^3/uL (130-400); RBC 4.38 10^6/uL (3.93-5.22); RDW 14.1 % (11.7-14.6); RDW-SD 43.6 fL; WBC 9.05 10^3/uL (4.4-10.8)
[2023-08-22 13:25] LABS: ALT 19 U/L (14-59); AST 14 U/L (15-37); Albumin 3.2 g/dL (3.4-5.0); Alkaline Phosphatase 93 U/L (46-116); Anion Gap 11.5 mmol/L (3-11); BUN 29 mg/dL (7-18); Bilirubin, Total 0.2 mg/dL (0.2-1.0); CO2 24.5 mmol/L (21.0-32.0); CREATININE 1.4 mg/dL (0.55-1.02); Calcium 9.3 mg/dL (8.5-10.1); Chloride 106 mmol/L (98-107); Estimated GFR 36.87 (mL/min/1.73m2); Glucose 136 mg/dL (74-106); Potassium 3.9 mmol/L (3.5-5.1); Sodium 142 mmol/L (136-145); Total Protein 7.3 g/dL (6.4-8.2)
[2023-08-22 13:26] LABS: C-Reactive Protein < 0.50 mg/dL (<or=0.5)
== END 2023-08-22 03:30 | disposition home or self-care (01) ==
PROVIDERS: PCP Family Medicine; Visit Provider Internal Medicine Rheumatology
DX: Z79.899 Other long term (current) drug therapy (principal)
CPT/HCPCS: 36415; 80053; 85025; 86140

== ENCOUNTER 2023-08-31 14:44 | Outpatient (CLI) | payer MEDICARE, SELFPAY ==
--- NOTE | 2023-08-31 11:15 | DI.RAD_ITS ---
Exam(s) XR SHOULDER RT COMPLETE 2+V EXAM: XR SHOULDER RT COMPLETE 2+V INDICATION: F/U FRACTURE. COMPARISON: CR XR SHOULDER RT COMPLETE 2+V from 07/20/2023 TECHNIQUE: 2D digital imaging was performed. Two views. FINDINGS: There has been no change in fracture alignment given differences in projection. Continued healing at the fracture site. DATA REPOSITORY: RADIATION DOSE DELIVERED:
== END 2023-08-31 14:45 | disposition home or self-care (01) ==
LOC: DIORS 14:44
PROVIDERS: PCP Family Medicine; Visit Provider Student in an Organized Health Care Education/Training Program
DX: S42.201D Unspecified fracture of upper end of right humerus, subsequent encounter for fracture with routine healing (principal); X58.XXXD Exposure to other specified factors, subsequent encounter
CPT/HCPCS: 99213; 73030

== ENCOUNTER 2023-11-25 12:47 | Outpatient (REF) | payer MEDICARE, SELFPAY | END 2023-11-25 12:48 | disposition home or self-care (01) | LOC: LBN 12:47 | PROVIDERS: PCP Family Medicine; Visit Provider Physician Assistant | DX: N39.0 Urinary tract infection, site not specified (principal) | CPT/HCPCS: 87077; 87186; 87086 ==

== ENCOUNTER 2023-11-30 15:15 | Outpatient (CLI) | payer MEDICARE, SELFPAY ==
--- NOTE | 2023-11-30 11:00 | DI.RAD_ITS ---
Exam(s) XR SHOULDER RT COMPLETE 2+V EXAM: XR SHOULDER RT COMPLETE 2+V CLINICAL HISTORY: F/U FRACTURE. TECHNIQUE: 2D digital imaging was performed. Five views. COMPARISON: CR XR SHOULDER RT COMPLETE 2+V from 08/31/2023 FINDINGS: BONES: Interval healing previously noted fracture of the proximal humerus. No bony destructive lesio n is seen. JOINTS: Mild degenerative changes of the glenohumeral joint. SOFT TISSUE: Normal. IMPRESSION: Significant interval healing of proximal humeral fracture. DATA REPOSITORY: RADIATION DOSE DELIVERED:
== END 2023-11-30 15:16 | disposition home or self-care (01) ==
LOC: DIORS 15:15
PROVIDERS: PCP Family Medicine; Referring Provider Family Medicine; Visit Provider Student in an Organized Health Care Education/Training Program
DX: X58.XXXD Exposure to other specified factors, subsequent encounter (principal); S42.201D Unspecified fracture of upper end of right humerus, subsequent encounter for fracture with routine healing
CPT/HCPCS: 99213; 73030

== ENCOUNTER 2023-12-12 04:17 | Outpatient (CLI) | payer MEDICARE, SELFPAY ==
[2023-12-12 16:41] LABS: Abs Immature Grans 0.05 10^3/uL (0.0-0.06); Absolute Basophil Count 0.04 10^3/uL (0.0-0.2); Absolute Eosinophil Count 0.14 10^3/uL (0.0-0.7); Absolute Lymphocyte Count 2.24 10^3/uL (1.2-3.4); Absolute Monocyte Count 0.73 10^3/uL (0.1-0.8); Absolute Neutrophil Count 6.59 10^3/uL (1.2-6.7); Basophils % 0.4 %; Eosinophils % 1.4 %; HCT 37.4 % (36.0-46.0); Immature Grans % 0.5 %; Lymphocytes % 22.9 %; MCH 28.2 pg (27.0-33.0); MCHC 32.1 % (32.0-36.0); MCV 88 fL (80-95); MPV 10.6 fL (8.0-11.0); Monocytes % 7.5 %; Neutrophils % 67.3 %; Platelet Count 227 10^3/uL (130-400); RBC 4.26 10^6/uL (3.93-5.22); RDW 14.4 % (11.7-14.6); RDW-SD 45.5 fL; WBC 9.79 10^3/uL (4.4-10.8)
[2023-12-12 17:39] LABS: Hemoglobin A1C 5.7 % (<5.7)
[2023-12-12 17:41] LABS: ALT 27 U/L (14-59); AST 18 U/L (15-37); Albumin 3.3 g/dL (3.4-5.0); Alkaline Phosphatase 104 U/L (46-116); Anion Gap 11.1 mmol/L (3-11); BUN 20 mg/dL (7-18); Bilirubin, Total 0.31 mg/dL (0.2-1.0); C-Reactive Protein 0.93 mg/dL (<or=0.5); CO2 21.9 mmol/L (21.0-32.0); CREATININE 1.3 mg/dL (0.55-1.02); Calcium 9.5 mg/dL (8.5-10.1); Chloride 105 mmol/L (98-107); Estimated GFR 40.05 (mL/min/1.73m2); Glucose 98 mg/dL (74-106); Potassium 3.6 mmol/L (3.5-5.1); Sodium 138 mmol/L (136-145); TSH (W/Ref FT4) 2.36 uIU/mL (0.36-3.74); Total Protein 7.3 g/dL (6.4-8.2)
== END 2023-12-12 04:18 | disposition home or self-care (01) ==
LOC: LBO 04:19
PROVIDERS: PCP Family Medicine; Visit Provider Family Medicine
DX: R63.0 Anorexia; I10 Essential (primary) hypertension; E11.9 Type 2 diabetes mellitus without complications; M06.4 Inflammatory polyarthropathy; Z79.899 Other long term (current) drug therapy
CPT/HCPCS: 36415; 80053; 85027; 81003; 83036; 84443; 85025; 86140

== ENCOUNTER 2023-12-12 21:13 | Outpatient (REF) | payer MEDICARE, SELFPAY ==
[2023-12-12 22:14] LABS: Bilirubin Negative (Negative); Blood Negative (Negative); Clarity Clear (Clear); Glucose Negative (Negative); Ketones Negative (Negative); Leukocyte Esterase Negative (Negative); Nitrite Negative (Negative); Urobilinogen 0.2 mg/dL (Up to 0.2); pH 5.5 (5-8)
== END 2023-12-12 21:14 | disposition home or self-care (01) ==
LOC: LBN 21:13
PROVIDERS: PCP Family Medicine; Visit Provider Family Medicine
DX: R35.0 Frequency of micturition (principal)
CPT/HCPCS: 81003

== ENCOUNTER 2024-05-09 03:19 | Outpatient (CLI) | payer MEDICARE, SELFPAY ==
[2024-05-09 12:12] LABS: Abs Immature Grans 0.02 10^3/uL (0.0-0.06); Absolute Basophil Count 0.06 10^3/uL (0.0-0.2); Absolute Eosinophil Count 0.18 10^3/uL (0.0-0.7); Absolute Lymphocyte Count 2.58 10^3/uL (1.2-3.4); Absolute Monocyte Count 0.64 10^3/uL (0.1-0.8); Absolute Neutrophil Count 5.77 10^3/uL (1.2-6.7); Basophils % 0.6 %; Eosinophils % 1.9 %; HCT 40.8 % (36.0-46.0); HGB 13.1 g/dL (11.2-15.7); Immature Grans % 0.2 %; Lymphocytes % 27.9 %; MCH 28.1 pg (27.0-33.0); MCHC 32.1 % (32.0-36.0); MCV 88 fL (80-95); MPV 9.7 fL (8.0-11.0); Monocytes % 6.9 %; Neutrophils % 62.5 %; Platelet Count 235 10^3/uL (130-400); RBC 4.66 10^6/uL (3.93-5.22); RDW 14.1 % (11.7-14.6); RDW-SD 45.1 fL; WBC 9.25 10^3/uL (4.4-10.8)
[2024-05-09 12:49] LABS: ALT 26 U/L (14-59); AST 21 U/L (15-37); Albumin 3.4 g/dL (3.4-5.0); Alkaline Phosphatase 130 U/L (46-116); Anion Gap 9.8 mmol/L (3-11); BUN 25 mg/dL (7-18); Bilirubin, Total 0.35 mg/dL (0.2-1.0); CO2 24.2 mmol/L (21.0-32.0); CREATININE 1.5 mg/dL (0.55-1.02); Calcium 9.5 mg/dL (8.5-10.1); Chloride 105 mmol/L (98-107); Estimated GFR 33.73 (mL/min/1.73m2); Glucose 94 mg/dL (74-106); Potassium 3.8 mmol/L (3.5-5.1); Sodium 139 mmol/L (136-145); Total Protein 7.9 g/dL (6.4-8.2)
== END 2024-05-09 03:20 | disposition home or self-care (01) ==
LOC: LBO 03:19
PROVIDERS: PCP Family Medicine; Visit Provider Internal Medicine Rheumatology
DX: M06.4 Inflammatory polyarthropathy (principal); Z79.899 Other long term (current) drug therapy
CPT/HCPCS: 36415; 80053; 85025; 86140

== ENCOUNTER 2024-06-28 01:13 | Outpatient (CLI) | payer MEDICARE, SELFPAY ==
[2024-06-28 13:17] LABS: HCT 39.2 % (36.0-46.0); HGB 12.8 g/dL (11.2-15.7); MCH 28.1 pg (27.0-33.0); MCHC 32.7 % (32.0-36.0); MCV 86 fL (80-95); MPV 9.9 fL (8.0-11.0); Platelet Count 238 10^3/uL (130-400); RBC 4.56 10^6/uL (3.93-5.22); RDW 14.5 % (11.7-14.6); WBC 9.39 10^3/uL (4.4-10.8)
[2024-06-28 13:57] LABS: ALT 21 U/L (14-59); AST 17 U/L (15-37); Albumin 3.3 g/dL (3.4-5.0); Alkaline Phosphatase 127 U/L (46-116); Anion Gap 8.6 mmol/L (3-11); BUN 29 mg/dL (7-18); Bilirubin, Total 0.28 mg/dL (0.2-1.0); CO2 24.4 mmol/L (21.0-32.0); CREATININE 1.5 mg/dL (0.55-1.02); Calcium 9.9 mg/dL (8.5-10.1); Chloride 107 mmol/L (98-107); Estimated GFR 33.73 (mL/min/1.73m2); Glucose 154 mg/dL (74-106); Potassium 3.8 mmol/L (3.5-5.1); Sodium 140 mmol/L (136-145); TSH (W/Ref FT4) 1.89 uIU/mL (0.36-3.74); Total Protein 7.5 g/dL (6.4-8.2); Vitamin B12 626 pg/mL (193-986)
== END 2024-06-28 01:14 | disposition home or self-care (01) ==
LOC: LBO 01:13
PROVIDERS: PCP Family Medicine; Visit Provider Family Medicine
DX: E03.9 Hypothyroidism, unspecified (principal); R55 Syncope and collapse; I10 Essential (primary) hypertension; E53.8 Deficiency of other specified B group vitamins
CPT/HCPCS: 36415; 80053; 85027; 82607; 84443

== ENCOUNTER 2024-07-03 08:50 | Outpatient (CLI) | payer MEDICARE, SELFPAY | END 2024-07-03 08:51 | disposition home or self-care (01) | PROVIDERS: PCP Family Medicine; Visit Provider Family Medicine | DX: R55 Syncope and collapse (principal) | CPT/HCPCS: 93246 ==

== ENCOUNTER 2024-07-05 02:34 | Outpatient (CLI) | payer MEDICARE, SELFPAY ==
--- NOTE | 2024-07-05 07:00 | DI.US_ITS ---
Exam(s) US CAROTID EXAM: US CAROTID CLINICAL HISTORY: unable to speak after turning head,CONFUSION,DISORIENTATION,ALTERATION IN. TECHNIQUE: Ultrasound carotids performed using grayscale, color-flow, and spectral Doppler imaging. COMPARISON: No exams were available for comparison FINDINGS: CAROTID ARTERIES: There is only minimal plaque evident at the carotid bulbs and proximal ICAs. Estimated less than 10 percent. No elevated velocities evident in the carotid arteries in the neck. VERTEBRAL ARTERIES: Antegrade flow is demonstrated in both vertebral arteries. Measurements: R Bulb: 43.9cm/s PS / 12.8cm/s ED R CCA: 46.5cm/s PS / 11.5cm/s ED R ECA: 51.2cm/s PS / 2.8cm/s ED R ICA Prox: 37.6cm/s PS / 11.1cm/s ED R ICA Mid: 68.1cm/s PS / 21.3cm/s ED R ICA Distal: 43.8cm/s PS /13cm/s ED R Vert: 75cm/s PS / 20.6cm/s ED R SVR: 1.5 R DVR: 1.8 L Bulb: 38.6cm/s PS / 12.4cm/s ED L CCA: 42.6cm/s PS / 11.5cm/s ED L ECA: 41.1cm/s PS / 5.9cm/s ED L ICA Prox: 57.2cm/s PS / 15.2cm/s ED L ICA Mid: 65.1cm/s PS / 20.7cm/s ED L ICA Distal: 57.5cm/s PS / 13.2cm/s ED L Vert: 49.7cm/s PS / 16.7cm/s ED L SVR: 1.5 L DVR: 1.8 IMPRESSION: Minimal bilateral plaque in the carotid arteries in the neck. No elevated velocities. Estimated at less than 10 percent stenosis bilaterally. Antegrade flow is demonstrated in both vertebral arteries in the neck. Criteria for Carotid Stenosis: Normal: ICA PSV <125 cm/s no plaque or intimal thickening is visible. <50% stenosis: ICA PSV <125 cm/s and plaque or intimal thickening is visible. 50-69% stenosis: ICA PSV is 125-250 cm/s and plaque is visible. >70% stenosis to near occlusion: ICA PSV >250 cm/s with visible plaque and luminal narrowing. DATA REPOSITORY:
== END 2024-07-05 02:54 ==
LOC: DI 02:35
PROVIDERS: PCP Family Medicine; Visit Provider Family Medicine
DX: R41.0 Disorientation, unspecified (principal); R47.89 Other speech disturbances
CPT/HCPCS: 93880

== ENCOUNTER 2024-07-24 07:30 | Outpatient (CLI) | payer MEDICARE, SELFPAY ==
--- NOTE | 2024-07-24 12:31 | W.CARDEVENT ---
Date of service: 07/24/24 Time of Service: 12:31 Cardiac Event Recorder Referring Provider:: Evangelina Cerrato Indications:: Syncope Cardiac Event Note: This is a cardiac event monitor. Patient was monitored for 13 days and 20 hours. Rhythm throughout was sinus with an average heart rate of 64. Minimum was 47, maximum 115. There were rare isolated ventricular ectopic beats. There were rare isolated atrial premature beats. A total of 11 self-limited atrial runs occurred. The longest of these was 9 beats in duration. All atrial runs were asymptomatic. There was no high-grade AV block, no atrial fibrillation, no pauses greater than 3 seconds. Reported symptoms correlated to sinus rhythm at 57, otherwise to no significant dysrhythmia
== END 2024-07-24 07:31 | disposition home or self-care (01) ==
LOC: CARDOPNVT 07:30
PROVIDERS: PCP Family Medicine; Visit Provider Internal Medicine Cardiovascular Disease
DX: R55 Syncope and collapse (principal); I49.1 Atrial premature depolarization
CPT/HCPCS: 93248

== ENCOUNTER 2024-09-21 10:04 | Outpatient (CLI) | payer MEDICARE, SELFPAY ==
[2024-09-21 11:53] LABS: Abs Immature Grans 0.08 10^3/uL (0.0-0.06); Absolute Basophil Count 0.06 10^3/uL (0.0-0.2); Absolute Lymphocyte Count 3.29 10^3/uL (1.2-3.4); Basophils % 0.5 %; Eosinophils % 0.9 %; HCT 41.1 % (36.0-46.0); Immature Grans % 0.7 %; Lymphocytes % 28.9 %; MCH 28.4 pg (27.0-33.0); MCHC 31.6 % (32.0-36.0); MCV 90 fL (80-95); MPV 10.4 fL (8.0-11.0); Monocytes % 7.5 %; Neutrophils % 61.5 %; Platelet Count 229 10^3/uL (130-400); RBC 4.58 10^6/uL (3.93-5.22); RDW 14.3 % (11.7-14.6); RDW-SD 46.4 fL
[2024-09-21 11:54] LABS: Absolute Monocyte Count 0.86 10^3/uL (0.1-0.8); Absolute Neutrophil Count 7.01 10^3/uL (1.2-6.7)
[2024-09-21 12:22] LABS: ALT 21 U/L (14-59); AST 14 U/L (15-37); Albumin 3.1 g/dL (3.4-5.0); Alkaline Phosphatase 90 U/L (46-116); Anion Gap 7.1 mmol/L (3-11); BUN 30 mg/dL (7-18); Bilirubin, Total 0.4 mg/dL (0.2-1.0); C-Reactive Protein 0.84 mg/dL (<or=0.5); CO2 26.9 mmol/L (21.0-32.0); CREATININE 1.5 mg/dL (0.55-1.02); Calcium 9.7 mg/dL (8.5-10.1); Chloride 104 mmol/L (98-107); Estimated GFR 33.52 (mL/min/1.73m2); Glucose 85 mg/dL (74-106); Potassium 3.6 mmol/L (3.5-5.1); Sodium 138 mmol/L (136-145)
== END 2024-09-21 10:05 | disposition home or self-care (01) ==
PROVIDERS: PCP Family Medicine; Visit Provider Internal Medicine Rheumatology
DX: M06.4 Inflammatory polyarthropathy (principal); Z79.899 Other long term (current) drug therapy
CPT/HCPCS: 36415; 80053; 85025; 86140

== ENCOUNTER 2025-01-30 03:15 | Outpatient (CLI) | payer MEDICARE, SELFPAY ==
[2025-01-30 12:02] LABS: Abs Immature Grans 0.04 10^3/uL (0.0-0.06); HCT 40.3 % (36.0-46.0); HGB 12.6 g/dL (11.2-15.7); Immature Grans % 0.5 %; MCH 27.8 pg (27.0-33.0); MCHC 31.3 % (32.0-36.0); MCV 89 fL (80-95); MPV 10.1 fL (8.0-11.0); Platelet Count 218 10^3/uL (130-400); RBC 4.54 10^6/uL (3.93-5.22); RDW 13.9 % (11.7-14.6); RDW-SD 44.5 fL; WBC 8.71 10^3/uL (4.4-10.8)
[2025-01-30 13:06] LABS: ALT 27 U/L (14-59); AST 22 U/L (15-37); Albumin 3.4 g/dL (3.4-5.0); Alkaline Phosphatase 95 U/L (46-116); Anion Gap 10.0 mmol/L (3-11); BUN 26 mg/dL (7-18); Bilirubin, Total 0.4 mg/dL (0.2-1.0); CO2 25.0 mmol/L (21.0-32.0); Calcium 9.9 mg/dL (8.5-10.1); Chloride 105 mmol/L (98-107); Estimated GFR 36.41 (mL/min/1.73m2); Glucose 109 mg/dL (74-106); Potassium 4.1 mmol/L (3.5-5.1); Sodium 140 mmol/L (136-145); Total Protein 7.3 g/dL (6.4-8.2)
== END 2025-01-30 03:16 | disposition home or self-care (01) ==
LOC: LBO 03:15
PROVIDERS: PCP Family Medicine; Visit Provider Internal Medicine Rheumatology
DX: M06.4 Inflammatory polyarthropathy (principal)
CPT/HCPCS: 36415; 80053; 85025

== ENCOUNTER 2025-05-15 10:48 | Observation (INO) | payer MEDICARE, SELFPAY ==
[2025-05-15] VITALS (18 sets, daily range): BP systolic 154–233; BP diastolic 65–92; PULSE 62–77; RESP 12–17; TEMP 36–36.5; O2SAT 94–98
--- NOTE | 2025-05-15 | DI.MRI_ITS ---
Exam(s) MR BRAIN WO EXAM: MR BRAIN WO CLINICAL HISTORY: acute vertigo episode, TIA? TECHNIQUE: Multiplanar multisequence MRI of the brain was performed. COMPARISON: CT CT BRAIN NECK CTA from 05/15/2025 FINDINGS: CEREBRAL PARENCHYMA: There is no evidence of intracranial hemorrhage, mass effect, or shift of midline structures. There are no extra-axial fluid collections. Ventricles are not enlarged or shifted. There is no significant focal signal abnormality in the cerebellar hemispheres. Some signal abnormality is noted both sides of the frank as well as abundant bilateral relatively symmetrical Jada in supra ventricular signal abnormality consistent with chronic small vessel ischemic changes and not associated with hemorrhage nor restricted diffusion. PITUITARY GLAND: No mass nor parasellar abnormality. No obvious abnormality in the cavernous sinuses. FLOW VOIDS: The expected flow void are noted. No evidence of obvious aneurysm nor obvious vascular malformation. Left vertebral artery is noted to be dominant. PARANASAL SINUSES: The visualized paranasal sinuses appear unremarkable. No obvious finding ORBITS: Previous bilateral cataract surgery. IMPRESSION: There is abundant bilateral periventricular signal abnormality as well as signal abnormality in both sides the frank, these findings consistent with chronic small vessel disease. There is no evidence of hemorrhage and no restricted diffusion to suggest acute ischemic event. Report called by myself to ER 05/15/2025 at 4:25 p.m. DATA REPOSITORY:
--- NOTE | 2025-05-15 10:45 | DI.CT_ITS ---
Exam(s) CT BRAIN NECK CTA EXAM: CT BRAIN NECK CTA CLINICAL HISTORY: headache and dizziness. TECHNIQUE: Imaging Protocol: Axial CT angiography was performed with multi- slice acquisition and multi-planar and/or 3D reconstructions. CONTRAST MATERIAL: Intravenous: Omnipaque 350 contrast volume:70 mL COMPARISON: No exams were available for comparison FINDINGS: CT Head W/O and W: Ventricles and Extra axial spaces: Normal in size and morphology for the patient's age. Hemorrhage: None. Cerebral parenchyma: There are areas of decreased attenuation in the white matter most consistent with chronic microvascular ischemic disease. There is no evidence of an acute territorial infarct or acute mass effect. Midline shift: None. Brainstem/Cerebellum: Normal. Calvarium: Normal. Visualized Paranasal sinuses/Mastoids: Clear. Soft Tissues: Unremarkable. Enhancement: Unremarkable. CTA Neck W: Common Carotid: Right: No dissection, occlusion or significant stenosis. Left: No dissection, occlusion or significant stenosis. External Carotid: Right: No occlusion or significant stenosis. Left: No occlusion or significant stenosis. Internal Carotid: Right: No dissection, occlusion or significant stenosis. Left: No dissection, occlusion or significant stenosis. Vertebral Artery: Right: No dissection, occlusion or significant stenosis. Left: No dissection, occlusion or significant stenosis. Lung Apices: Normal. Bones: Within normal limits for the patient's age. Soft Tissues: Normal. Thyroid gland: There are no suspicious thyroid nodules. CTA Brain W: Internal Carotid Arteries: There is minimal calcific plaque seen in the left cavernous internal carotid artery. No occlusion, aneurysm or significant stenosis is present. Anterior Cerebral Arteries: Right: No aneurysm, occlusion or significant stenosis. Left: No aneurysm, occlusion or significant stenosis. Middle Cerebral Arteries: Right: No aneurysm, occlusion or significant stenosis. Left: No aneurysm, occlusion or significant stenosis. Posterior Cerebral Arteries: Right: No aneurysm, occlusion or significant stenosis. Left: No aneurysm, occlusion or significant stenosis. Vertebral Arteries: Right: No aneurysm, occlusion or significant stenosis. Left: No aneurysm, occlusion or significant stenosis. Basilar Artery: No aneurysm, occlusion or significant stenosis. IMPRESSION: 1. No large vessel occlusion or significant stenosis on the CT angiography of the head. 2. No acute intracranial process. 3. No occlusion or significant stenosis on the CT angiography of the neck. RADIATION DOSE DELIVERED: 2,072.72mGy.cm Total DLP DATA REPOSITORY: All CT scans at this facility are submitted to the National Radiology Data Registry (NRDR) Dose Index Registry (DIR) with the [employer] (ACR). RADIATION OPTIMIZATION: All CT scans at this facility use at least one of these dose optimization techniques: automated exposure control; mA and/or kV adjustment per patient size (includes targeted exams where dose is matched to clinical indication); or iterative reconstruction.
--- NOTE | 2025-05-15 10:45 | RT.EKG_ITS ---
APPROVED REPORT Exam: Resting ECG Reason for Exam: Dizzy/ High BP Patient Location: E HR:64 bpm ECG Measurements Heart Rate 64 AXIS CA 177 P 32 QRSd 70 QRS 28 QT 392 T 37 QTc 403 Conclusion Sinus rhythm...normal P axis, V-rate 60- 99 Probable left atrial enlargement...P >50mS, <-0.10mV V1 No STEMI
--- NOTE | 2025-05-15 11:30 | DI.RAD_ITS ---
Exam(s) XR CHEST 2V PA LATERAL EXAM: XR CHEST 2V PA LATERAL CLINICAL HISTORY: dizziness TECHNIQUE: 2D digital imaging was performed of the chest. Two images were obtained. AP and lateral views were obtained. COMPARISON: CR XR CHEST 2V PA LATERAL from 07/08/2023 FINDINGS: MEDIASTINUM: Normal. HEART: Normal. PULMONARY VASCULATURE: Normal. LUNGS: Clear. PLEURAL SPACE: No pleural effusion or pneumothorax. BONE:Within normal limits for the patient's age. OTHER FINDINGS:Normal. IMPRESSION: No acute pulmonary findings. DATA REPOSITORY: RADIATION DOSE DELIVERED:
[2025-05-15 11:45] LABS: Abs Immature Grans 0.03 10^3/uL (0.0-0.06); HCT 39.3 % (36.0-46.0); HGB 12.7 g/dL (11.2-15.7); Immature Grans % 0.3 %; MCH 28.0 pg (27.0-33.0); MCHC 32.3 % (32.0-36.0); MCV 87 fL (80-95); MPV 9.9 fL (8.0-11.0); Platelet Count 195 10^3/uL (130-400); RBC 4.53 10^6/uL (3.93-5.22); RDW 13.4 % (11.7-14.6); RDW-SD 42.2 fL; WBC 10.40 10^3/uL (4.4-10.8)
[2025-05-15] MEDS: ACETAMINOPHEN 1,000 MG/100 ML BAG 400 MG IVPB (11:46)
[2025-05-15] MEDS: MAGNESIUM SULFATE 2 GM/50 ML BAG IV_INF (11:46)
[2025-05-15] MEDS: Normal Saline 1,000 ML 1000 ML IV (11:46)
[2025-05-15 12:17] LABS: Magnesium 1.7 mg/dL (1.6-2.6)
[2025-05-15 12:19] LABS: ALT 16 U/L (10-49); AST 22 U/L (<34); Albumin 3.6 g/dL (3.2-5.0); Alkaline Phosphatase 96 U/L (46-116); Anion Gap 9 mmol/L (3-11); BUN 18 mg/dL (9-23); Bilirubin, Total 0.40 mg/dL (0.2-1.2); CO2 25.0 mmol/L (20.0-31.0); Calcium 9.4 mg/dL (8.3-10.6); Chloride 107 mmol/L (98-107); Glucose 93 mg/dL (74-106); Potassium 4.1 mmol/L (3.5-5.1); Sodium 141 mmol/L (136-145); Total Protein 6.9 g/dL (5.7-8.2); Troponin I 5 ng/L (<35)
[2025-05-15 12:29] LABS: Glucose Negative (Negative)
[2025-05-15] MEDS: Omnipaque 350 MG/ML 100 ML BTL IJ (13:11)
[2025-05-15] MEDS: Normal Saline - Diluent 50 ML VIAL IJ (13:13)
--- NOTE | 2025-05-15 13:39 | W.ED.GENAD ---
Discharge Plan Disposition Patient Disposition: Home Discharge Details Clinical Impression: TIA (transient ischemic attack), Vertigo, Headache Primary Care Provider: Evangelina Cerrato ED Provider: Stanley Neal Home Meds and New Rx's Prescriptions: No Action leucovorin calcium 5 mg tablet 10 mg PO .qMonday Rasuvo (PF) 10 mg/0.2 mL auto-injector 10 mg subcut QWEEK cyanocobalamin (vitamin B-12) [Vitamin B-12] 1,000 MCG tablet 1,000 mcg PO DAILY acetaminophen [Tylenol Extra Strength] 500 mg tablet 1,000 mg PO TID PRN amlodipine 5 mg tablet 5 mg PO DAILY Patient Comments: TAKE ONE TABLET BY MOUTH EVERY DAY Discharge Instructions Stand Alone Forms: Portal Information HPI General Date/Time Provider Initiated Documentation: 05/15/25 10:54. HPI Narrative: MDM/Narrative: 89-year-old female presents for evaluation of vertigo which spontaneously resolved with persistent headache. Neurologic exam is normal at this time however given patient's medical comorbidities concern for possible TIA/CVA, as well as possible ACS or arrhythmia. Will obtain screening labs and EKG as well as CTA brain and neck. Suspect patient would benefit from an inpatient stay to manage her blood pressure and to obtain MRI to rule out stroke should her initial workup be negative. ED course: Lab results and imaging is unremarkable. Given patient would be moderate risk as per ABCD 2 TIA score, case discussed with Dr. Pimentel (Hospitalist) who is agreeable with the plan to start DAPT therapy and admit for TIA work-up. Disposition: Admit to [facility] HPI: 89-year-old female past medical history of polymyalgia rheumatica, TIA, hypertension, hyperlipidemia, presents for evaluation of vertigo and headache. Patient states that last night she went to bed in her normal state of health, when she woke up this morning was having room spinning dizziness as well as a mild frontal headache. Symptoms persisted for approximately 1 to 2 hours and slowly resolved, patient now has no longer any dizziness but notes persistent headache. Daughter visited the patient and found that her blood pressure at home was quite elevated with systolics in the 200. As per the patient she has not been taking any antihypertensive for the past year as discussed with her doctor however the daughter is unsure about this. She denies any other new or concerning symptoms such as fever, chills, change in vision, change in speech, numbness or weakness. ROS: Negative besides as mentioned above Exam: Gen: A&O NAD HEENT: NCAT, EOMI, not icteric. External ears normal. No rhinorrhea. Moist mucous membranes. Neck: Supple, full range of motion, no observable masses, No meningeal sign. Lungs: No Respiratory distress. CV: RRR, no edema. Abdomen: Soft, nondistended, No rebound tenderness. MSK: No joint swelling, no redness. Skin: No rashes, petechiae, lesions. Normal color per patient. Neuro: Normal Gait, Grossly intact. Psych: Appropriate for situation. Rhythm: NSR Rate: 64 [place]: Normal axis Intervals: Normal intervals Other findings: No acute ST segment or T wave changes to suggest acute ischemia. Labs: Laboratory Tests Range/Units 05/15/25 05/15/25 05/15/25 11:35 11:58 12:15 WBC (4.4-10.8) 10^3/uL 10.40 RBC (3.93-5.22) 10^6/uL 4.53 Hgb (11.2-15.7) g/dL 12.7 Hct (36.0-46.0) % 39.3 MCV (80-95) fL 87 MCH (27.0-33.0) pg 28.0 MCHC (32.0-36.0) % 32.3 RDW (11.7-14.6) % 13.4 Plt Count (130-400) 10^3/uL 195 MPV (8.0-11.0) fL 9.9 Immature Gran % % 0.3 Neutrophils % % 68.4 Lymphocytes % % 24.2 Monocytes % % 5.4 Eosinophils % % 1.3 Basophils % % 0.4 Nucleated RBC % (0.0-0.3) % 0.0 Absolute Neutrophils (1.2-6.7) 10^3/uL 7.11 H Absolute Lymphocytes (1.2-3.4) 10^3/uL 2.52 Absolute Monocytes (0.1-0.8) 10^3/uL 0.56 Absolute Eosinophils (0.0-0.7) 10^3/uL 0.14 Absolute Basophils (0.0-0.2) 10^3/uL 0.04 Sodium Cancelled 141 Potassium Cancelled 4.1 Chloride Cancelled 107 Carbon Dioxide Cancelled 25.0 Anion Gap Cancelled 9 BUN Cancelled 18 Creatinine Cancelled 1.17 H Est GFR (CKD-EPI 2020) Cancelled 43.69 Glucose Cancelled 93 Calcium Cancelled 9.4 Magnesium Cancelled 1.7 Total Bilirubin Cancelled 0.40 AST Cancelled 22 ALT Cancelled 16 Alkaline Phosphatase Cancelled 96 Troponin I Cancelled 5 NT-Pro-B Natriuret Pep Cancelled 702 H Total Protein Cancelled 6.9 Albumin Cancelled 3.6 Urine Color (Yellow) Yellow Urine Clarity (Clear) Clear Urine pH (5-8) 5.5 Ur Specific [place] (1.005-1.025) <= 1.005 Urine Protein (Neg-Trace) mg/dL Negative Urine Ketones (Negative) mg/dL Negative Urine Blood (Negative) Negative Urine Nitrite (Negative) Negative Urine Bilirubin (Negative) Negative Urine Urobilinogen (Up to 0.2) mg/dL 0.2 Ur Leukocyte Esterase (Negative) Negative Urine Glucose (Negative) mg/dL Negative Range/Units 05/15/25 12:57 WBC (4.4-10.8) 10^3/uL RBC (3.93-5.22) 10^6/uL Hgb (11.2-15.7) g/dL Hct (36.0-46.0) % MCV (80-95) fL MCH (27.0-33.0) pg MCHC (32.0-36.0) % RDW (11.7-14.6) % Plt Count (130-400) 10^3/uL MPV (8.0-11.0) fL Immature Gran % % Neutrophils % % Lymphocytes % % Monocytes % % Eosinophils % % Basophils % % Nucleated RBC % (0.0-0.3) % Absolute Neutrophils (1.2-6.7) 10^3/uL Absolute Lymphocytes (1.2-3.4) 10^3/uL Absolute Monocytes (0.1-0.8) 10^3/uL Absolute Eosinophils (0.0-0.7) 10^3/uL Absolute Basophils (0.0-0.2) 10^3/uL Sodium Potassium Chloride Carbon Dioxide Anion Gap BUN Creatinine Est GFR (CKD-EPI 2020) Glucose Calcium Magnesium Total Bilirubin AST ALT Alkaline Phosphatase Troponin I 7 NT-Pro-B Natriuret Pep Total Protein Albumin Urine Color (Yellow) Urine Clarity (Clear) Urine pH (5-8) Ur Specific [place] (1.005-1.025) Urine Protein (Neg-Trace) mg/dL Urine Ketones (Negative) mg/dL Urine Blood (Negative) Urine Nitrite (Negative) Urine Bilirubin (Negative) Urine Urobilinogen (Up to 0.2) mg/dL Ur Leukocyte Esterase (Negative) Urine Glucose (Negative) mg/dL Radiology: Accession No. : [id number] Creator : YURIDIA JAMES Dictator : YURIDIA JAMES [employer]orman : [employer] Cook : YURIDIA JAMES Approver2 : Report Date : 05/15/2025 13:36:53 This report is currently processing and HAS NOT BEEN OFFICIALLY SIGNED BY THE PHYSICIAN - ESTIMATED TIME OF APPROVAL IS 05/15/2025 13:47. Exam(s) XR CHEST 2V PA LATERAL EXAM: XR CHEST 2V PA LATERAL CLINICAL HISTORY: dizziness TECHNIQUE: 2D digital imaging was performed of the chest. Two images were obtained. AP and lateral views were obtained. COMPARISON: CR XR CHEST 2V PA LATERAL from 07/08/2023 FINDINGS: MEDIASTINUM: Normal. HEART: Normal. PULMONARY VASCULATURE: Normal. LUNGS: Clear. PLEURAL SPACE: No pleural effusion or pneumothorax. BONE:Within normal limits for the patient's age. OTHER FINDINGS:Normal. IMPRESSION: No acute pulmonary findings. DATA REPOSITORY: RADIATION DOSE DELIVERED: Accession No. : [id number] Creator : YURIDIA JAMES Dictator : YURIDIA JAMES [employer] Motorman : [employer] Cook : YURIDIA JAMES Approver2 : Report Date : 05/15/2025 14:13:49 This report is currently processing and HAS NOT BEEN OFFICIALLY SIGNED BY THE PHYSICIAN - ESTIMATED TIME OF APPROVAL IS 05/15/2025 14:24. Exam(s) CT BRAIN NECK CTA EXAM: CT BRAIN NECK CTA CLINICAL HISTORY: headache and dizziness. TECHNIQUE: Imaging Protocol: Axial CT angiography was performed with multi-slice acquisition and multi-planar and/or 3D reconstructions. CONTRAST MATERIAL: Intravenous: Omnipaque 350 contrast volume:70 mL COMPARISON: No exams were available for comparison FINDINGS: CT Head W/O and W: Ventricles and Extra axial spaces: Normal in size and morphology for the patient's age. Hemorrhage: None. Cerebral parenchyma: There are areas of decreased attenuation in the white matter most consistent with chronic microvascular ischemic disease. There is no evidence of an acute territorial infarct or acute mass effect. Midline shift: None. Brainstem/Cerebellum: Normal. Calvarium: Normal. Visualized Paranasal sinuses/Mastoids: Clear. Soft Tissues: Unremarkable. Enhancement: Unremarkable. CTA Neck W: Common Carotid: Right: No dissection, occlusion or significant stenosis. Left: No dissection, occlusion or significant stenosis. External Carotid: Right: No occlusion or significant stenosis. Left: No occlusion or significant stenosis. Internal Carotid: Right: No dissection, occlusion or significant stenosis. Left: No dissection, occlusion or significant stenosis. Vertebral Artery: Right: No dissection, occlusion or significant stenosis. Left: No dissection, occlusion or significant stenosis. Lung Apices: Normal. Bones: Within normal limits for the patient's age. Soft Tissues: Normal. Thyroid gland: There are no suspicious thyroid nodules. CTA Brain W: Internal Carotid Arteries: There is minimal calcific plaque seen in the left cavernous internal carotid artery. No occlusion, aneurysm or significant stenosis is present. Anterior Cerebral Arteries: Right: No aneurysm, occlusion or significant stenosis. Left: No aneurysm, occlusion or significant stenosis. Middle Cerebral Arteries: Right: No aneurysm, occlusion or significant stenosis. Left: No aneurysm, occlusion or significant stenosis. Posterior Cerebral Arteries: Right: No aneurysm, occlusion or significant stenosis. Left: No aneurysm, occlusion or significant stenosis. Vertebral Arteries: Right: No aneurysm, occlusion or significant stenosis. Left: No aneurysm, occlusion or significant stenosis. Basilar Artery: No aneurysm, occlusion or significant stenosis. IMPRESSION: 1. No large vessel occlusion or significant stenosis on the CT angiography of the head. 2. No acute intracranial process. 3. No occlusion or significant stenosis on the CT angiography of the neck. RADIATION DOSE DELIVERED: 2,072.72mGy.cm Total DLP DATA REPOSITORY: All CT scans at this facility are submitted to the National Radiology Data Registry (NRDR) Dose Index Registry (DIR) with the [employer] (ACR). RADIATION OPTIMIZATION: All CT scans at this facility use at least one of these dose optimization techniques: automated exposure control; mA and/or kV adjustment per patient size (includes targeted exams where dose is matched to clinical indication); or iterative reconstruction. Related Data Home Medications ?Medication ?Instructions ?Recorded ?Confirmed cyanocobalamin (vitamin B-12) 1,000 mcg PO DAILY 07/16/14 05/15/25 1,000 mcg tablet (Vitamin B-12) acetaminophen 500 mg tablet 1,000 mg PO TID PRN 09/07/18 05/15/25 (Tylenol Extra Strength) leucovorin calcium 5 mg tablet 10 mg PO .qMonday 12/12/23 05/15/25 methotrexate (PF) 10 mg/0.2 mL 10 mg subcut QWEEK 12/17/24 05/15/25 subcutaneous auto-injector (Rasuvo (PF)) amlodipine 5 mg tablet 5 mg PO DAILY 05/15/25 05/15/25 Allergies Allergy/AdvReac Type Severity Reaction Status Date / Time No Known Allergies Allergy Verified 05/15/25 10:55 General Stated Complaint: Headache HUA: 3 Course Vital Signs Vital signs: Vital Signs Temperature 36.2 C L 05/15/25 10:50 Pulse 73 05/15/25 10:50 Respiratory Rate 16 05/15/25 10:50 Blood Pressure 218/92 H 05/15/25 10:50 Temperature 36.2 C L 05/15/25 10:50 Temperature Source Oral 05/15/25 10:50 Pulse 66 05/15/25 13:00 Pulse 67 05/15/25 13:00 Respiratory Rate 12 05/15/25 13:00 Blood Pressure 190/69 H 05/15/25 13:00 Blood Pressure Position Sitting 05/15/25 10:50 Pulse Oximetry 96 05/15/25 13:00 Oxygen Delivery Method Room Air 05/15/25 10:50 Oxygen Flow Rate 0 05/15/25 10:50 Pain Level 6 05/15/25 12:02 Lab/Test Results Lab/Test Results: Laboratory Tests Range/Units 05/15/25 05/15/25 05/15/25 11:35 11:58 12:15 WBC (4.4-10.8) 10^3/uL 10.40 RBC (3.93-5.22) 10^6/uL 4.53 Hgb (11.2-15.7) g/dL 12.7 Hct (36.0-46.0) % 39.3 MCV (80-95) fL 87 MCH (27.0-33.0) pg 28.0 MCHC (32.0-36.0) % 32.3 RDW (11.7-14.6) % 13.4 Plt Count (130-400) 10^3/uL 195 MPV (8.0-11.0) fL 9.9 Immature Gran % % 0.3 Neutrophils % % 68.4 Lymphocytes % % 24.2 Monocytes % % 5.4 Eosinophils % % 1.3 Basophils % % 0.4 Nucleated RBC % (0.0-0.3) % 0.0 Absolute Neutrophils (1.2-6.7) 10^3/uL 7.11 H Absolute Lymphocytes (1.2-3.4) 10^3/uL 2.52 Absolute Monocytes (0.1-0.8) 10^3/uL 0.56 Absolute Eosinophils (0.0-0.7) 10^3/uL 0.14 Absolute Basophils (0.0-0.2) 10^3/uL 0.04 Sodium Cancelled 141 Potassium Cancelled 4.1 Chloride Cancelled 107 Carbon Dioxide Cancelled 25.0 Anion Gap Cancelled 9 BUN Cancelled 18 Creatinine Cancelled 1.17 H Est GFR (CKD-EPI 2020) Cancelled 43.69 Glucose Cancelled 93 Calcium Cancelled 9.4 Magnesium Cancelled 1.7 Total Bilirubin Cancelled 0.40 AST Cancelled 22 ALT Cancelled 16 Alkaline Phosphatase Cancelled 96 Troponin I Cancelled 5 NT-Pro-B Natriuret Pep Cancelled 702 H Total Protein Cancelled 6.9 Albumin Cancelled 3.6 Urine Color (Yellow) Yellow Urine Clarity (Clear) Clear Urine pH (5-8) 5.5 Ur Specific [place] (1.005-1.025) <= 1.005 Urine Protein (Neg-Trace) mg/dL Negative Urine Ketones (Negative) mg/dL Negative Urine Blood (Negative) Negative Urine Nitrite (Negative) Negative Urine Bilirubin (Negative) Negative Urine Urobilinogen (Up to 0.2) mg/dL 0.2 Ur Leukocyte Esterase (Negative) Negative Urine Glucose (Negative) mg/dL Negative Medical Decision Making Quality:SDOH Health Related Social Needs: Health related social needs lonely/isolated PFSH All Active Problems (Updated 05/15/25 @ 14:31 by Stanley Neal MD) Headache (Acute) Vertigo (Acute) TIA (transient ischemic attack) (Acute) Dizziness (Acute) Alteration in speech (Acute) Speech and language deficits (Acute) Speech disturbance (Acute) Confusion and disorientation (Acute) Memory changes (Acute) Speech abnormality (Acute) Syncope (Chronic) Chronic left SI joint pain (Acute) Anorexia (Acute) Closed fracture of right proximal humerus (Acute ~06/10/23) Abnormal CT scan (Acute) Inflammatory polyarthritis (Acute) Vitamin D deficiency (Acute) Elevated serum creatinine (Acute) Elevated glucose (Acute) Hip pain, bilateral (Acute) Acute bilateral low back pain (Acute) Pelvic pain (Acute) 11/2020. Nl Pelvic/Abd CT scan. 01/2021. Nl pelvic exam. No prolapse. Polymyalgia rheumatica (Acute) UTI (urinary tract infection) (Acute) Abdominal pain (Acute) Elevated sed rate (Acute) Arthralgia (Acute) URI (upper respiratory infection) (Acute) Wrist arthritis (Acute) Knee pain (Acute) Neck pain (Acute 05/12/00) Other specified disease of nail (Acute) Trochanteric bursitis (Acute 07/01/15) Cheek mass (Acute) Arm skin lesion, left (Acute 02/07/18) B12 deficiency (Chronic 02/13/14) Essential hypertension (Chronic) definitely has white coat hypertension Hyperlipidemia (Chronic) elevated triglycerides Medical History Chronic sinusitis Elevated C-reactive protein (11/24/17) Herpes zoster (04/13/11) Intussusception of intestine (05/12/83) Other specified 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 12/24/[address] 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 BRITO; RIGHT EYE 12/24/14; DR. BRITO; LEFT EYE Family History Mother , OLD AGE at age 93. Essential hypertension Dementia Father , 90 Stroke Acute cholecystitis Sister No problems noted. Maternal Grandfather , 60s Heart disease Paternal Grandfather , 70s Stroke Maternal Grandmother Colon cancer Paternal Grandmother Stroke Sister , 53 Breast cancer Sister No problems noted. Sister No problems noted. Sister Asthma Brother No problems noted. Brother No problems noted. Son Cancer Daughter No problems noted. Daughter No problems noted. Social History (Updated 12/18/24 @ 13:09 by Elinor Viramontes) Smoking/Tobacco Use Status: Never Second Hand Exposure: No Smoking risk assessment performed?: Yes Alcohol Intake: never Drug use: Never Substance use type: does not use Adopted: No Caregiver/Support person: No Household members: none Housing: house Number of Children: 3 number of grandchildren: 7 Communication Needs: Corrective Lenses Education Level: high school Do you need help understanding health information?: Often current occupation: Retired Pets and animals: No Sexually active: No Do you think of yourself as: straight/heterosexual Current gender identity: female What is your relationship status?: How often do you talk on the phone with friends or family?: three or more times per week How often do you get together with friends or relatives?: decline to answer How often do you attend oriental orthodox or spiritism services?: decline to answer Do you belong to any clubs or organized social groups?: decline to answer Panel score (0-1 are the most socially isolated patients): 1 What type of physical activity do you participate in: other Details: Gardening Duration: decline to answer Frequency: decline to answer Payton/Jew: Non jain Special payton needs: No Agree to transfusion: Yes Seatbelt use: always Helmet use: No Drive intox or ride w/intox driver license technician: No Working smoke detector in home: Yes Carbon monox detector in home: Yes Firearms in home: No Do you feel safe at home: Yes Victim of physical abuse: No Victim of emotional abuse: No Victim of sexual abuse: No Would you like helpful sources: No
[2025-05-15 13:41] LABS: Troponin I 7 ng/L (<35)
[2025-05-15] MEDS: Clopidogrel 300 MG TAB PO (14:37)
[2025-05-15] MEDS: Aspirin 325 MG TAB PO (14:37)
[2025-05-15 15:25] LABS: Troponin I 9 ng/L (<35)
[2025-05-15] MEDS: LORazepam 2 MG/ML VIAL 1 MG IVP (15:33)
--- NOTE | 2025-05-15 15:59 | HPE_ITS ---
Date of service: 05/15/25 Time of Service: 15:59 Assessment and Plan Assessment and plan (1) TIA (transient ischemic attack): Status: Acute Assessment and plan: Continue dual antiplatelet therapy (DAPT) as per guidelines. Plvaix, aspirin, atorvastatin Monitor for recurrence of neurological symptoms. Follow-up with neurology and primary care. Echo in am (2) Vertigo: Status: Acute Assessment and plan: Likely related to TIA or benign positional vertigo. Supportive care with hydration and antiemetics as needed. Consider PT for Jacki maneuvers if vertigo returns. (3) Headache: Status: Acute Assessment and plan: Persistent post-vertigo headache, likely secondary to TIA. Resolved on admission Manage with acetaminophen and monitor for any escalation of symptoms. (4) Essential hypertension: Status: Chronic Assessment and plan: Reevaluate antihypertensive therapy once stable. Permissive hypertension Re-educate patient and family regarding the importance of blood pressure control. Follow-up with PCP for medication adjustments. History of Present Illness History of Present Illness Chief Complaint: Room spinning Narrative: The patient is an 89-year-old female with a past medical history of polymyalgia rheumatica, TIA, hypertension, and hyperlipidemia. She presented to the ED with acute onset vertigo and a mild frontal headache. Symptoms began overnight, with dizziness lasting 1?2 hours and resolving spontaneously. Persistent headache remains. Her daughter noted elevated home blood pressures (systolic ~200?mmHg). The patient reports not taking antihypertensive medications for the past year. She denies fever, chills, visual changes, speech difficulties, numbness, or weakness. Given her history and acute presentation, there was concern for possible TIA, CVA, ACS, or arrhythmia. Initial evaluation included labs, EKG, and CTA of the brain and neck. Laboratory Results * CBC: WBC 10.4 (mildly elevated neutrophils), Hgb 12.7, Plt 195 * BMP: Creatinine 1.17 (slightly above normal), eGFR 43.7 * Troponin: 5?7 (within expected range, trending stable) * NT-proBNP: 702 H * Urinalysis: Normal Other labs including electrolytes, liver function, and glucose were unremarkable. Imaging * Chest X-ray: Normal mediastinum, heart, and pulmonary vasculature; no acute findings * MRI brain: There is abundant bilateral periventricular signal abnormality as well as signal abnormality in both sides the frank, these findings consistent with chronic small vessel disease. There is no evidence of hemorrhage and no restricted diffusion to suggest acute ischemic event. * CTA brain/neck: 1. No large vessel occlusion or significant stenosis on the CT angiography of the head. 2. No acute intracranial process. 3. No occlusion or significant stenosis on the CT angiography of the neck. Place on observation status on the medical floor for further teaching and treatment. Anticipate discharge 05/16 after echocardiogram with bubble. Patient is a DNR/DNI. Review of Systems Narrative: * General: Negative except as noted in HPI * Neurologic: Negative except for transient vertigo * All other systems: Negative PFSH All Active Problems (Updated 05/15/25 @ 16:40 by BROOKS ASHFORD) Headache (Acute) Vertigo (Acute) TIA (transient ischemic attack) (Acute) Dizziness (Acute) Alteration in speech (Acute) Speech and language deficits (Acute) Speech disturbance (Acute) Confusion and disorientation (Acute) Memory changes (Acute) Speech abnormality (Acute) Syncope (Chronic) Chronic left SI joint pain (Acute) Anorexia (Acute) Closed fracture of right proximal humerus (Acute ~06/10/23) Abnormal CT scan (Acute) Inflammatory polyarthritis (Acute) Vitamin D deficiency (Acute) Elevated serum creatinine (Acute) Elevated glucose (Acute) Hip pain, bilateral (Acute) Acute bilateral low back pain (Acute) Pelvic pain (Acute) 11/2020. Nl Pelvic/Abd CT scan. 01/2021. Nl pelvic exam. No prolapse. Polymyalgia rheumatica (Acute) UTI (urinary tract infection) (Acute) Abdominal pain (Acute) Elevated sed rate (Acute) Arthralgia (Acute) URI (upper respiratory infection) (Acute) Wrist arthritis (Acute) Knee pain (Acute) Neck pain (Acute 05/12/00) Other specified disease of nail (Acute) Trochanteric bursitis (Acute 07/01/15) Cheek mass (Acute) Arm skin lesion, left (Acute 02/07/18) B12 deficiency (Chronic 02/13/14) Essential hypertension (Chronic) definitely has white coat hypertension Hyperlipidemia (Chronic) elevated triglycerides Medical History Chronic sinusitis Elevated C-reactive protein (11/24/17) Herpes zoster (04/13/11) Intussusception of intestine (05/12/83) Other specified 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 12/24/[address] 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 BRITO; RIGHT EYE 12/24/14; DR. BRITO; LEFT EYE Family History Mother , OLD AGE at age 93. Essential hypertension Dementia Father , 90 Stroke Acute cholecystitis Sister No problems noted. Maternal Grandfather , 60s Heart disease Paternal Grandfather , 70s Stroke Maternal Grandmother Colon cancer Paternal Grandmother Stroke Sister , 53 Breast cancer Sister No problems noted. Sister No problems noted. Sister Asthma Brother No problems noted. Brother No problems noted. Son Cancer Daughter No problems noted. Daughter No problems noted. Social History (Updated 12/18/24 @ 13:09 by Elinor Viramontes) Smoking/Tobacco Use Status: Never Second Hand Exposure: No Smoking risk assessment performed?: Yes Alcohol Intake: never Drug use: Never Substance use type: does not use Adopted: No Caregiver/Support person: No Household members: none Housing: house Number of Children: 3 number of grandchildren: 7 Communication Needs: Corrective Lenses Education Level: high school Do you need help understanding health information?: Often current occupation: Retired Pets and animals: No Sexually active: No Do you think of yourself as: straight/heterosexual Current gender identity: female What is your relationship status?: How often do you talk on the phone with friends or family?: three or more times per week How often do you get together with friends or relatives?: decline to answer How often do you attend hindu or restoration services?: decline to answer Do you belong to any clubs or organized social groups?: decline to answer Panel score (0-1 are the most socially isolated patients): 1 What type of physical activity do you participate in: other Details: Gardening Duration: decline to answer Frequency: decline to answer Payton/Taoist: Non alevism Special payton needs: No Agree to transfusion: Yes Seatbelt use: always Helmet use: No Drive intox or ride w/intox delivery driver/supervisor: No Working smoke detector in home: Yes Carbon monox detector in home: Yes Firearms in home: No Do you feel safe at home: Yes Victim of physical abuse: No Victim of emotional abuse: No Victim of sexual abuse: No Would you like helpful sources: No Meds Allergies and Home Medications Allergies Allergy/AdvReac Type Severity Reaction Status Date / Time No Known Allergies Allergy Verified 05/15/25 10:55 Home Medications ?Medication ?Instructions ?Recorded ?Confirmed ?Type cyanocobalamin (vitamin B-12) 1,000 mcg PO DAILY 07/1605/15/25 History 1,000 mcg tablet (Vitamin B-12) acetaminophen 500 mg tablet 1,000 mg PO TID PRN 05/15/25 History (Tylenol Extra Strength) leucovorin calcium 5 mg tablet 10 mg PO .qMonday 12/1105/15/25 History methotrexate (PF) 10 mg/0.2 mL 10 mg subcut QWEEK 01/0405/15/25 History subcutaneous auto-injector (Rasuvo (PF)) amlodipine 5 mg tablet 5 mg PO DAILY 05/15/2505/15 History Exam Narrative Exam Narrative: General: Alert and oriented, no acute distress HEENT: Normocephalic, atraumatic, extraocular movements intact, non-icteric sclera Neck: Supple, full range of motion, no masses Lungs: No respiratory distress Cardiovascular: Regular rate and rhythm, no edema Abdomen: Soft, non-distended, no rebound tenderness Musculoskeletal: No joint swelling or redness Skin: No rashes or lesions Neurological: Normal gait, grossly intact neurologic exam Psychiatric: Appropriate for the situation Results Labs 05/15/25 11:35 05/15/25 11:58 Labs: Laboratory Results - last 24 hr 05/15/25 05/15/25 05/15/25 11:35 11:58 12:15 WBC 10.40 RBC 4.53 Hgb 12.7 Hct 39.3 MCV 87 MCH 28.0 MCHC 32.3 RDW 13.4 Plt Count 195 MPV 9.9 Immature Gran % 0.3 Neutrophils % 68.4 Lymphocytes % 24.2 Monocytes % 5.4 Eosinophils % 1.3 Basophils % 0.4 Nucleated RBC % 0.0 Absolute Neutrophils 7.11 H Absolute Lymphocytes 2.52 Absolute Monocytes 0.56 Absolute Eosinophils 0.14 Absolute Basophils 0.04 Sodium Cancelled 141 Potassium Cancelled 4.1 Chloride Cancelled 107 Carbon Dioxide Cancelled 25.0 Anion Gap Cancelled 9 BUN Cancelled 18 Creatinine Cancelled 1.17 H Est GFR (CKD-EPI 2020) Cancelled 43.69 Glucose Cancelled 93 Calcium Cancelled 9.4 Magnesium Cancelled 1.7 Total Bilirubin Cancelled 0.40 AST Cancelled 22 ALT Cancelled 16 Alkaline Phosphatase Cancelled 96 Troponin I Cancelled 5 NT-Pro-B Natriuret Pep Cancelled 702 H Total Protein Cancelled 6.9 Albumin Cancelled 3.6 Urine Color Yellow Urine Clarity Clear Urine pH 5.5 Ur Specific [place] <= 1.005 Urine Protein Negative Urine Ketones Negative Urine Blood Negative Urine Nitrite Negative Urine Bilirubin Negative Urine Urobilinogen 0.2 Ur Leukocyte Esterase Negative Urine Glucose Negative 05/15/25 05/15/25 12:57 14:50 WBC RBC Hgb Hct MCV MCH MCHC RDW Plt Count MPV Immature Gran % Neutrophils % Lymphocytes % Monocytes % Eosinophils % Basophils % Nucleated RBC % Absolute Neutrophils Absolute Lymphocytes Absolute Monocytes Absolute Eosinophils Absolute Basophils Sodium Potassium Chloride Carbon Dioxide Anion Gap BUN Creatinine Est GFR (CKD-EPI 2020) Glucose Calcium Magnesium Total Bilirubin AST ALT Alkaline Phosphatase Troponin I 7 9 NT-Pro-B Natriuret Pep Total Protein Albumin Urine Color Urine Clarity Urine pH Ur Specific [place] Urine Protein Urine Ketones Urine Blood Urine Nitrite Urine Bilirubin Urine Urobilinogen Ur Leukocyte Esterase Urine Glucose Last Vital Signs Temp 36.2 C L 05/15/25 10:50 Pulse 71 05/15/25 15:05 Resp 12 05/15/25 13:00 BP 233/86 H 05/15/25 15:05 Pulse Ox 97 05/15/25 15:00 VTE Prohylaxis Risk Level: Moderate/High Risk (TIA v CVA) Contraindications: None Prophylaxis: Pharmacologic Time Spent Time spent with Patient: 40-54 minutes Time was spent: preparing to see the patient(eg.review tests), obtaining and/or reviewing separately otained hiistory, ordering medications,tests, procedures, referring, communicating with other health pharmacist critical care, indepentently interpreting results, counseling the patient and care coordination
--- NOTE | 2025-05-15 16:58 | IN_ITS ---
PT Notes Visit Reasons: TIA, hypertension Physical Therapy Inpatient Initial Evaluation Date: 05/15/2025 Referring Doctor: Ton Pimentel MD PT Orders: PT CONSULT: Fall Safety Assesment Precautions: Fall. Standard. Activity as tolerated. Patient Profile/Admitting Diagnosis: Dorothy is an 89-year-old female who presented with dizziness, headache, neck pain and genernalized weakness at the ED on 05/15/2025. Patient was admitted for further assessment and management of suspected TIA vs CVA, vertigo, headache, and hypertension. PMHX: All Active Problems (Updated 05/15/25 @ 16:40 by BROOKS ASHFORD) Headache (Acute) Vertigo (Acute) TIA (transient ischemic attack) (Acute) Dizziness (Acute) Alteration in speech (Acute) Speech and language deficits (Acute) Speech disturbance (Acute) Confusion and disorientation (Acute) Memory changes (Acute) Speech abnormality (Acute) Syncope (Chronic) Chronic left SI joint pain (Acute) Anorexia (Acute) Closed fracture of right proximal humerus (Acute ~06/10/23) Abnormal CT scan (Acute) Inflammatory polyarthritis (Acute) Vitamin D deficiency (Acute) Elevated serum creatinine (Acute) Elevated glucose (Acute) Hip pain, bilateral (Acute) Acute bilateral low back pain (Acute) Pelvic pain (Acute) 11/2020. Nl Pelvic/Abd CT scan. 01/2021. Nl pelvic exam. No prolapse.Polymyalgia rheumatica (Acute) UTI (urinary tract infection) (Acute) Abdominal pain (Acute) Elevated sed rate (Acute) Arthralgia (Acute) URI (upper respiratory infection) (Acute) Wrist arthritis (Acute) Knee pain (Acute) Neck pain (Acute 05/12/00) Other specified disease of nail (Acute) Trochanteric bursitis (Acute 07/01/15) Cheek mass (Acute) Arm skin lesion, left (Acute 02/07/18) B12 deficiency (Chronic 02/13/14) Essential hypertension (Chronic) definitely has white coat hypertension Hyperlipidemia (Chronic) elevated triglycerides Medical History Chronic sinusitis Elevated C-reactive protein (11/24/17) Herpes zoster (04/13/11) Intussusception of intestine (05/12/83) Other specified disease of nail s/p nail removal for possible melanomaChronic sinusitis CT 2003-right maxillary sinus infx Knee pain Intussusception intestine Herpes zoster 04/13/11 Trochanteric bursitis 07/01/15 Elevated C-reactive protein (CRP) 11/24/17 Cervical pain (neck) (11/24/17) 05/12/00? 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 12/24/[address] 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 BRITO; RIGHT EYE 12/24/14; DR. BRITO; LEFT EYE Social History/Home Situation: Lives alone in a multi-level house with 4-5 steps to enter with rails on B sides. Recently needed to do beddings in the two bedrooms on the second floor as she had family visit at [facility]. Independent with all aspects of ADLs prior to admission. Still drives. Uses a SPC going down her driveway which slopes down. Equipment Owned/DME: SPC Subjective: Nurse Teresa just administered Ativan for patient about 20 minutes before PT came in and patient reported being drowsy. Complained of R-sided neck pain at 3- 4/10, headache now diminished. Strongly verbalized that this symptom is due to her methotrexate intake. She stated that her PCP has decreased her dosage already with the hope of decreasing the side effect from it. She hopes that the methotrexate could entirely be discontinued soon. Objective: General Observation: Cautious, slowed movement due to persistent mild dizziness Mental Status: Alert and oriented as to person, place, time, and purpose. Able to pay attention, focus, and respond appropriately. Pain: 3-4/10 Vital Signs: ENGRAVING OPERATOR Jeanna measured VS immediately before PT evaluation: BP 188/65 mmHg, HR 71 bpm, SaO2 98% ROM: Right Upper Extremity: Shoulder Flexion allowed up to 90 degrees. Shoulder abduction allowed up to 80 degrees. Elbow flexion WFL. Wrist flexion WFL. Functional opening and closing of hand WFL. Left Upper Extremity: Shoulder Flexion WFL. Shoulder abduction WFL. Elbow flexion WFL. Wrist flexion WFL. Functional opening and closing of hand WFL. Right Lower Extremity: Hip flexion WFL. Hip abduction WFL. Knee flexion WFL. Ankle dorsiflexion WFL. Ankle plantarflexion WFL. Left Lower Extremity: Hip flexion WFL. Hip abduction WFL. Knee flexion WFL. Ankle dorsiflexion WFL. Ankle plantarflexion WFL. Strength: Right Upper Extremity: Shoulder flexors 3-/5. Shoulder abductors 3-/5. Elbow flexors 4-/5. Elbow extensors 4-/5. Urgent Care Technician strong. Left Upper Extremity: Shoulder flexors 4-/5. Shoulder abductors 4-/5. Elbow flexors 4-/5. Elbow extensors 4-/5. Urgent Care Technician strong. Right Lower Extremity: Hip flexors 4/5. Hip abductors 4/5. Knee flexors 4/5. Knee extensors 4-/5. Ankle dorsiflexors 4-/5. Ankle plantarflexors 4-/5. Left Lower Extremity: Hip flexors 4/5. Hip abductors 4/5. Knee flexors 4/5. Knee extensors 4-/5. Ankle dorsiflexors 4-/5. Ankle plantarflexors 4-/5. Bed Mobility/Transfers: Minimal cueing provided for use of B hands as needed for support, movement sequence, AD management, and posture to reduce fall risk and minimize pain report Supine to sit stand by assist with HOB at about 30 degrees Sit to stand contact guard assist Stand to sit contact guard assist Bed to bedside commode contact guard assist Bedside commode to bed contact guard assist Bed to reclining chair with contact guard assist Gait: 5 steps + 5 steps using no assistive device but needed PT's contact guard assist as she was reporting dizziness. No LOB. Movement hesitant, slow, and cautious. No report of increased headache/neck pain. Balance: Static Sitting: Good Dynamic Sitting: Fair Static Standing: Fair Dynamic Standing: Poor Special Tests: Mobility Limitations Standardized Measure [facility]-PAC 6 clicks Basic Mobility Inpatient Short Form: Raw Score: 18 CMS Score: 47% deficit 4-Stage Test: Deferred for today as patient is becoming more drowsy from Ativan intake. Informed Consent/Education: Patient was instructed in purpose of PT consult and plan of care. Agreeable to proceed with established PT POC to achieve personal goals. Assessment: B LE strength symmetric, R shoulder AROM decreased due to chronic shoulder issue. Mobility assessment limited by patient's high BP and report of dizziness. Will plan to progress mobility ability in the next session when vitals signs and patient symptoms subside. Patient presents with clinical signs and symptoms consistent with current/admit ting diagnoses that have resulted to mobility limitations, gait instability, generalized weakness, and overall ADL decline as demonstrated by the following impairment level findings: 1. Decreased strength to B UE/LE major muscle groups 2. Impaired standing balance 3. Impaired activity tolerance 4. Limitation of joint range of motion in R shoulder (chronic issue) 5. Dizziness 6. R-side neck pain Impairments are contributing to the following functional limitations: 1. Decline in bed mobility skills 2. Decline in transfer skills 3. Difficulty with ambulation 4. Increased completion time for mobility ADL performance 5. Increased risk for falls 6. Difficulty with managing steps alone safely Patient is assessed as a 19730 moderate complexity based on the following: History: 89-year-old female with past medical history as indicated above Examination: Demonstrable impairment in strength, balance, and mobility level with underlying impairments and functional limitations as exhibited above as well as deficit score of 47% utilizing the [facility] Mobility Inpatient Short Form Presentation: Evolving Decision Makin moderate complexity Goals: Goals X1 week 1. Supine-Sit independent 2. Sit-Supine independent 3. Sit-Stand independent 4. Stand-Sit independent with FWW 5. Bed-Chair independent with FWW 6. Chair-Bed independent with FWW 7. Independent gait on level surface with use of no AD for at least 300 feet without report of pain nor dyspnea 8. Independent stair negotiation while holding onto B rails for at least 12 steps without report of pain nor dyspnea 9. Independent with home exercise program 10. Good static and dynamic standing balance/tolerance Plan of Care/Treatment Plan: 1-2x/day, 7 days/week x 1 week. Plan of care has been reviewed with the MERCHANDISING MANAGER providing the service under Physical Therapy direction. Initiate Physical Therapy intervention for pain management as needed, strengthening, bed mobility, transfers, gait, stairs, balance training, and use of assistive device. DISCHARGE RECOMMENDATIONS: HH PT vs short-term SNF based on symptom evolution/regression related and progress towards goals TREATMENT CODE/TIME: 31431 x 22 minutes 1 unit (16:58-17:20). Thank you for the opportunity to participate in the care of this patient. Bebe Ibarra PT, DPT, CLT [facility] [place], [place]
--- NOTE | 2025-05-15 18:04 | W.PC.ACHO ---
Registration Status: ADM JAYLA Primary Language: Preferred Language: Indonesian ED Information & Data Chief Complaint Headache 05/15/25 13:41 Triage Note Pt states she awoke this 05/15/25 10:50 morning with a headache and feels dizzy. Denies chest pain or shortness of breath. Medical / Surgical History (Last Reviewed 12/05/23 @ 10:47 by GO Currie) Chronic sinusitis Elevated C-reactive protein (11/24/17) Herpes zoster (04/13/11) Intussusception of intestine (05/12/83) Other specified disease of nail Chronic sinusitis Knee pain Intussusception intestine Herpes zoster Trochanteric bursitis Elevated C-reactive protein (CRP) Cervical pain (neck) (11/24/17) (Last Reviewed 12/05/23 @ 10:47 by GO Currie) History of bilateral ligation of fallopian tubes History of cataract removal with insertion of prosthetic lens (12/10/14) History of colectomy History of bilateral tubal ligation History of colon resection H/O cataract removal with insertion of prosthetic lens nail removal Ligation of fallopian tube Colectomy (~10/1983) Extraction of cataract Most Recent Vital Signs Temperature 36.0 C L 05/15/25 17:07 Temperature Source Temporal Artery Scan 05/15/25 17:07 Pulse 71 05/15/25 17:07 Pulse Rhythm Regular 05/15/25 16:46 Pulse 67 05/15/25 13:00 Respiratory Rate 17 05/15/25 17:07 Respiratory Effort Normal, Non-Labored 05/15/25 16:46 Respiratory Depth Normal 05/15/25 16:46 Respiratory Pattern Normal 05/15/25 16:46 Blood Pressure 188/65 H 05/15/25 17:07 Blood Pressure Mean 106 05/15/25 17:07 Blood Pressure Position Supine 05/15/25 16:13 Pulse Oximetry 98 05/15/25 17:07 Oxygen Delivery Method Room Air 05/15/25 17:07 Oxygen Flow Rate 0 05/15/25 17:07 Pain Level 6 05/15/25 12:02 Allergies No Known Allergies Allergy (Verified 05/15/25 10:55) Precautions Isolation Standard precaution 05/15/25 10:53 Active Medications Generic Name Dose Route Start Last Admin Trade Name Freq PRN Reason Stop Dose Admin Iohexol 100 ml 12/03/25 13:15 05/15/25 13:11 Omnipaque 350 Mg/Ml 100 Ml Btl IJ 06/14/25 23:59 70 ml DIRECTED JR Administration Sodium Chloride 50 ml 05/15/25 13:15 05/15/25 13:13 Normal Saline - Diluent 50 Ml Vial IJ 50 ml DIRECTED JR Administration IV IV Catheter Type [Right Saline Lock Antecubital] IV Catheter Gauge [Right 20 Antecubital] Diet Orders Category Date Time Status DIET [Heart Healthy Eating] [DIET] Nutrition 05/15/25 Dinner Active Diagnostics 05/15/25 05/15/25 05/15/25 Range/Units 14:50 12:57 12:15 WBC (4.4-10.8) 10^3/uL RBC (3.93-5.22) 10^6/uL Hgb (11.2-15.7) g/dL Hct (36.0-46.0) % MCV (80-95) fL MCH (27.0-33.0) pg MCHC (32.0-36.0) % RDW (11.7-14.6) % Plt Count (130-400) 10^3/uL MPV (8.0-11.0) fL Immature Gran % % Neutrophils % % Lymphocytes % % Monocytes % % Eosinophils % % Basophils % % Nucleated RBC % (0.0-0.3) % Absolute Neutrophils (1.2-6.7) 10^3/uL Absolute Lymphocytes (1.2-3.4) 10^3/uL Absolute Monocytes (0.1-0.8) 10^3/uL Absolute Eosinophils (0.0-0.7) 10^3/uL Absolute Basophils (0.0-0.2) 10^3/uL Sodium Potassium Chloride Carbon Dioxide Anion Gap BUN Creatinine Est GFR (CKD-EPI 2020) Glucose Calcium Magnesium Total Bilirubin AST ALT Alkaline Phosphatase Troponin I 9 7 NT-Pro-B Natriuret Pep Total Protein Albumin Urine Color Yellow (Yellow) Urine Clarity Clear (Clear) Urine pH 5.5 (5-8) Ur Specific [place] <= 1.005 (1.005-1.025) Urine Protein Negative (Neg-Trace) mg/dL Urine Ketones Negative (Negative) mg/dL Urine Blood Negative (Negative) Urine Nitrite Negative (Negative) Urine Bilirubin Negative (Negative) Urine Urobilinogen 0.2 (Up to 0.2) mg/dL Ur Leukocyte Esterase Negative (Negative) Urine Glucose Negative (Negative) mg/dL 05/15/25 05/15/25 Range/Units 11:58 11:35 WBC 10.40 (4.4-10.8) 10^3/uL RBC 4.53 (3.93-5.22) 10^6/uL Hgb 12.7 (11.2-15.7) g/dL Hct 39.3 (36.0-46.0) % MCV 87 (80-95) fL MCH 28.0 (27.0-33.0) pg MCHC 32.3 (32.0-36.0) % RDW 13.4 (11.7-14.6) % Plt Count 195 (130-400) 10^3/uL MPV 9.9 (8.0-11.0) fL Immature Gran % 0.3 % Neutrophils % 68.4 % Lymphocytes % 24.2 % Monocytes % 5.4 % Eosinophils % 1.3 % Basophils % 0.4 % Nucleated RBC % 0.0 (0.0-0.3) % Absolute Neutrophils 7.11 H (1.2-6.7) 10^3/uL Absolute Lymphocytes 2.52 (1.2-3.4) 10^3/uL Absolute Monocytes 0.56 (0.1-0.8) 10^3/uL Absolute Eosinophils 0.14 (0.0-0.7) 10^3/uL Absolute Basophils 0.04 (0.0-0.2) 10^3/uL Sodium 141 Cancelled Potassium 4.1 Cancelled Chloride 107 Cancelled Carbon Dioxide 25.0 Cancelled Anion Gap 9 Cancelled BUN 18 Cancelled Creatinine 1.17 H Cancelled Est GFR (CKD-EPI 2020) 43.69 Cancelled Glucose 93 Cancelled Calcium 9.4 Cancelled Magnesium 1.7 Cancelled Total Bilirubin 0.40 Cancelled AST 22 Cancelled ALT 16 Cancelled Alkaline Phosphatase 96 Cancelled Troponin I 5 Cancelled NT-Pro-B Natriuret Pep 702 H Cancelled Total Protein 6.9 Cancelled Albumin 3.6 Cancelled Urine Color (Yellow) Urine Clarity (Clear) Urine pH (5-8) Ur Specific [place] (1.005-1.025) Urine Protein (Neg-Trace) mg/dL Urine Ketones (Negative) mg/dL Urine Blood (Negative) Urine Nitrite (Negative) Urine Bilirubin (Negative) Urine Urobilinogen (Up to 0.2) mg/dL Ur Leukocyte Esterase (Negative) Urine Glucose (Negative) mg/dL Intake and Output - 24 Hour Total 05/15/25 10:48 thru 05/15/25 17:07 Intake Total 1160 Balance 1160 Weight 69.037 kg Intake: IV 1160 Other: Urine Color Yellow Urine Appearance Clear Urine Odor None Falls Risk Assessment History of Falls No History 05/15/25 16:46 Contributing Factors Unstable,Medications 05/15/25 16:46 Ambulatory Aids Uses ambulatory device 05/15/25 16:46 Tubes/Lines W/no contributing factors 05/15/25 16:46 Gait Evaluation W/no contributing factors 05/15/25 16:46 Cognition No cognitive impairment 05/15/25 16:46 Fall Total Score 41 05/15/25 16:46 Level of Risk Moderate Risk 05/15/25 16:46 Problems (Last Reviewed 12/05/23 @ 10:47 by GO Currie) Headache (Acute) Vertigo (Acute) TIA (transient ischemic attack) (Acute) Essential hypertension (Chronic) Attestation Statement: By documenting the first initial, last name, and credentials of the reporting nurse below, both parties acknowledge that all relevant information regarding the patient handoff has been communicated, and that all questions have been addressed to ensure continuity and safety of care. Additional Patient Information/Comments: Pt b/p 168/65, some vertigo on arrival, stand and pivot, ambulate to chair with PT. Report Received From: JER Kee RN
[2025-05-15] MEDS: Atorvastatin 40 MG TAB 80 MG PO (21:08)
[2025-05-15] MEDS: Normal Saline Flush 10 ML SYR IVP (21:09)
[2025-05-16 07:10] LABS: Anion Gap 9 mmol/L (3-11); BUN 19 mg/dL (9-23); CO2 25.0 mmol/L (20.0-31.0); Calcium 8.9 mg/dL (8.3-10.6); Chloride 108 mmol/L (98-107); Glucose 96 mg/dL (74-106); Hemoglobin A1C 5.5 % (<5.7); Potassium 3.9 mmol/L (3.5-5.1); Sodium 142 mmol/L (136-145)
[2025-05-16 07:23] VITALS: BP 155/85; PULSE 74; RESP 18; TEMP 36.7; O2SAT 95
--- NOTE | 2025-05-16 07:45 | PT.INTREAT ---
PT Notes Visit Reasons: TIA, hypertension Physical Therapy Treatment Note Date: 05/16/2025 Precautions: Fall. Standard. Activity as tolerated. Subjective: [place] much better today. Dizziness almost resolved. R-sided neck pain minimal. Agreeable to doing more today with PT. Objective: General Observation: Cautious, slowed movement due to persistent mild dizziness Mental Status: Alert and oriented as to person, place, time, and purpose. Able to pay attention, focus, and respond appropriately. Pain: 1-07/23 Vital Signs: after walking about 300 feet 188/80 mmHg, 77 bpm, 96% after sting 2 minutes 176/90 mmHg, 73 bpm, 95% after doing stairs 169/90 mmHg, 75 bpm, 95% Bed Mobility/Transfers: Supine to sit independent Sit to stand independent Stand to sit independent Bed to toilet seat independent Toilet seat to bed independent Bed to reclining chair independent Gait: 300 feet using FWW without increase in report of dizziness. 20 feet x 2 without AD with supervision. No LOB. No SOB Movement more automatic and rhytmic. No report of increased headache/neck pain. Stairs: Negotiated 6 x 4-inch steps and 4 x 6-inch steps while holding onto B rails for support. Stand by assist with minimal cueing only for pacing should painlevel increase. Balance: Static Sitting: Good Dynamic Sitting: Fair Static Standing: Fair Dynamic Standing: Poor Assessment: Patient demonstrated much improved independence with mobility ADL performance without symptom exacerbation of dizziness and head/neck pain. Patient will require continued home health PT to ensure a smooth transition at home and minimize fall risk. Plan of Care/Treatment Plan: 1-2x/day, 7 days/week x 1 week. Plan of care has been reviewed with the MUSICAL INSTRUMENT MAKER providing the service under Physical Therapy direction. Initiate Physical Therapy intervention for pain management as needed, strengthening, bed mobility, transfers, gait, stairs, balance training, and use of assistive device. DISCHARGE RECOMMENDATIONS: PT TREATMENT CODE/TIME: 62787 x 27 minutes 2 units (07:58-08:12).
--- NOTE | 2025-05-16 08:00 | DI.US_ITS ---
APPROVED REPORT EXAM: Comprehensive 2D, Doppler, and color-flow Echocardiogram Patient Location: In-Patient Room/Bed: 225 Multiple Sclerosis Nurse: Glendy Vela RDCS (AE) Indications: TIA- V -CVA - V - Vertigo Echo Enhancing Agent Indication: Rule Out Septal Defect Agent(s) / Amount(s) Used: Agitated Saline 30.0 cc Comments: Contrast study was performed with 3 IV injections of 10ccs of agitated normal saline, at rest, with cough and post valsalva maneuver. Negative contrast study for shunt flow. Other Information Study Quality: Adequate Conclusion Normal left ventricular wall thickness and chamber size. Ejection fraction is 55 to 60%. Wall motion is normal Normal right ventricular size and function Both atria are normal in size No intracardiac shunting is identified with the injection of agitated saline There are no structural valvular abnormalities Mild mitral regurgitation Mildly dilated ascending aorta measuring 3.85 cm Wall motion Left Ventricle The left ventricle is normal size. The left ventricular systolic function is normal. The left ventricular ejection fraction is within the normal range. There is normal left ventricular wall thickness. There is normal LV segmental wall motion. There is no ventricular septal defect visualized. LVEF is 58%. Right Ventricle The right ventricle is normal size. The right ventricular systolic function is normal. Atria The left atrium size is normal. The right atrium size is normal. The interatrial septum is intact with no evidence for an atrial septal defect. Saline bubble contrast intravenous injection does not demonstrate PFO. Aortic Valve The aortic valve is normal in structure. Aortic valve is trileaflet. There is no aortic valvular stenosis. No aortic regurgitation is present. Mitral Valve The mitral valve is normal in structure. No evidence of mitral valve stenosis. Mild mitral regurgitation. Tricuspid Valve The tricuspid valve is normal in structure. There is no tricuspid valve stenosis. Trace to mild tricuspid regurgitation. Unable to assess PA pressure. Pulmonic Valve The pulmonary valve is normal in structure. There is no pulmonic valvular stenosis. There is no pulmonic valvular regurgitation. Great Vessels The aortic root is normal in size. The ascending aorta is mildly dilated. Aortic arch is not well visualized. IVC is normal in size and collapses >50% with inspiration. Pericardium There is no pericardial effusion. 2D Dimensions IVSD d PLAX 1.03 cm F: 0.6-1.0 Ao Root d 2.84 cm F: 2.7 - 3.3 LVPW d PLAX 1.00 cm F: 0.6 - 1.0 Ao Asc Diam d 3.85 cm F: 2.3 - 3.1 LVID d PLAX 4.00 cm F: 3.8 - 5.2 LVDs 2.80 cm F: 2.2 - 3.5 LV EF Teichholz 57.8 % FS 30.00 % LV EDV (Teich) 69.2 mL LV ESV (Teich) 29.2 mL M-Mode TAPSE 1.72 cm (M/F) >1.7 Auto EF LV EDV A4C 74.0 mL LV EDV A2C 70.6 mL LV EDV BP 72.7 mL LV ESV A4C 32.8 mL LV ESV A2C 31.9 mL LV ESV BP 31.8 mL LVEF(%) A4C 55.7 % LVEF(%) A2C 54.9 % LVEF(%) BP 56.3 % LV SV A4C 41.2 ml LV SV A2C 38.8 ml LV SV BP 40.9 ml LV CO A4C 3.1 L/min LV CO A2C 2.9 L/min LV CO BP 3.0 L/min HR A4C 74.54 BPM HR A2C 74.97 BPM LV EDV Index (BP) LA Volume LA Length A4C 3.9 cm LA Length A2C 4.4 cm LA Area A4C s 11.12 cm2 LA Area A2C s 12.49 cm2 LA Vol A4C A-L 26.90 mL LA Vol A2C A-L 30.00 mL LA Vol Biplane A-L 30.2 mL LA Vol/BSA A4C A-L LA Vol/BSA A2C A-L LA Vol/BSA BP A-L 17.8 mL/m2 LA Vol A4C MOD 25.0 mL LA Vol A2C MOD 28.4 mL LA Vol BP MOD 28.2 mL RA Volume RA Area A4C 11.1 cm2 RA ESV A4C (A-L) 23.5mL RA Vol/BSA A4C A-L RA Length A4C 4.5 cm RA ESV A4C (MOD) 21.8mL LV Diastology MV E' medial 0.056 (>0.07 m/s) MV E Vmax 0.51 (0.4-1.3 m/s) MV E/E' MED 9.12 (<14) MV A Vmax 1.00 (0.4-1.3 m/s) MV E' lateral 0.043 (>0.1 m/s) E/A Ratio 0.5 MV E/E' LAT 11.76 (<14) MV E' Average 0.050 m/s MV E/E'(average) 10.27 Aortic Valve AoV Vmax 1.19 m/s LVOT Vmax 1.05 m/s AoV Peak Grad 5.7 mmHg LVOT Peak Grad 4.4 mmHg AoV Area (Vmax) 2.46 cm2 LVOT VTI 0.223 m AoV VTI 0.256 m LVOT Mean Grad 2.1 mmHg AoV Mean Zackery. 0.79 m/s LVOT SV 62.35 mL AoV Mean Grad 2.9 mmHg LVOT Diam s 1.85 cm AoV Area (VTI) 2.44 cm2 AV Regurg Peak Gr. 5.68 mmHg Velocity Ratio 0.88 Mitral Valve MV DT 455 (160-240 msec) MV Vmax TIPS 1.09 m/s MV Mean Grad 1.6 (<2mmHg) MV VTI 0.229 m Pulmonary Valve PV Vmax 0.87 (0.5-1.5 m/s) RVOT Vmax 0.77 m/s PV Peak Grad 3.0 mmHg RVOT Peak Gr. 2.4 mmHg PV Mean Zackery 0.56 m/s RVOT VTI 0.155 m PV Mean Grad 1.5 mmHg RVOT Mean Gr. 1.2 mmHg Tricuspid Valve TV S' 0.14 m/s
[2025-05-16 08:12] LABS: Cholesterol 193 mg/dL (<200); HDL Cholesterol 56 mg/dL (>40)
[2025-05-16] MEDS: Enoxaparin 40 MG/0.4 ML SYR SC (08:41)
[2025-05-16] MEDS: Cyanocobalamin 500 MCG TAB 1000 MCG PO (08:41)
[2025-05-16] MEDS: Normal Saline Flush 10 ML SYR IVP (08:41)
[2025-05-16] MEDS: Clopidogrel 75 MG TAB PO (08:41)
--- NOTE | 2025-05-16 08:48 | INITIAL_ITS ---
Date of service: 05/16/25 Time of Service: 08:48 Care Management Initial Assmt Initial Assessment Reason for Hospitalization: TIA, hypertension Functional Status/Living Situation Patient Presentation: Dorothy presented to the ED yesterday afternoon with c/o vertigo with persistent headache. She was admitted to observation for TIA work-up. Echo with bubbles is ordered for today. Head CT and MRI were negative for acute process. Dorothy stated that she woke yesterday with the room spinning and a headache. Those symptoms slowly resolved, but she had a persistent headache. Her daughter visited her later in the day and found her SBP to be in the 200s. She has not been taking antihypertensives for one year, and stated that her PCP is aware of this. Dorothy was lying in bed, visiting with her daughter and son-in-law, when CM met with them today. All present were very friendly, and easy to converse with. Dorothy has been living alone, but her son is very close by and visits daily. Her greatgranrodolfo, who is in 8th grade, is there every day after school. Daughter lives quite close, and Dorothy has lots of friends. She had been driving small distances until this admission. She stated that she will not be driving again, at least for a while. Town of Residence: [place] Resides with: Alone Significant Other/Family: Local (daughter, son and many grandchildren. 1 daughter is out of state in [place], but present today.) Natural Supports: daughters and their families Employment Status: Retired Instrumental Activities of Daily Living (ADLs): Independent Medications Medication Management: Issues/Barriers with Instructions/Directions ([facility] SN will be ordered to assist with med compliance) Physical Functioning/Mobility Assistive Device: walker Advance Directives Advance Directives: Do you have an Advance Directive: Y , 15:33 AD On File at [facility]: Y 12/16/20, 15:33 Date Asked 01/23/12 05/15/25, 10:56 AD Date Reviewed 05/15/25 05/15/25, 10:56 COLST On File at [facility] COLST Date Scanned Comment: Macy Leo is HCA Code Status Resuscitation Status DNR/DNI Insurance Coverage/Financial Issues Insurance: Medicare Part A & B - AARP [facility] Supplemental Care Team Visit Care Team Role Provider Type Evangelina Cerrato MD, SIENNA Primary Care Provider [facility] InPatient Dev Garcia Other Providers OTHER Stanley Neal MD Emergency Provider [facility] STAFF PHYSICIAN Ton Pimentel Admit Provider [facility] STAFF PHYSICIAN Attending Provider Discharge Potential Discharge Needs: Imaging/labs (echo with bubbles), PT Evaluation and PCP F/U Appt Anticipated Barriers to Discharge: None Identified Patient/Family Education Needs: Review discharge instructions, discuss Ask Me Three Transportation: Private vehicle Plan: Anticipate that Dorothy will discharge home once medically cleared. Dorothy will have new orders for home health - SN and PT. Dorothy will f/u with her PCP and continue per her plan of care. She will transport home in a private vehicle with family. CM will continue to follow. Social Determinants of Health Screening Will the Patient Participate in the Screening?: Unable to obtain PFSH All Active Problems (Updated 05/16/25 @ 13:45 by Arlet Andujar APRN) Headache (Acute) Vertigo (Acute) TIA (transient ischemic attack) (Acute) Dizziness (Acute) Alteration in speech (Acute) Speech and language deficits (Acute) Speech disturbance (Acute) Confusion and disorientation (Acute) Memory changes (Acute) Speech abnormality (Acute) Syncope (Chronic) Chronic left SI joint pain (Acute) Anorexia (Acute) Closed fracture of right proximal humerus (Acute ~06/10/23) Abnormal CT scan (Acute) Inflammatory polyarthritis (Acute) Vitamin D deficiency (Acute) Elevated serum creatinine (Acute) Elevated glucose (Acute) Hip pain, bilateral (Acute) Acute bilateral low back pain (Acute) Pelvic pain (Acute) 11/2020. Nl Pelvic/Abd CT scan. 01/2021. Nl pelvic exam. No prolapse. Polymyalgia rheumatica (Acute) UTI (urinary tract infection) (Acute) Abdominal pain (Acute) Elevated sed rate (Acute) Arthralgia (Acute) URI (upper respiratory infection) (Acute) Wrist arthritis (Acute) Knee pain (Acute) Neck pain (Acute 05/12/00) Other specified disease of nail (Acute) Trochanteric bursitis (Acute 07/01/15) Cheek mass (Acute) Arm skin lesion, left (Acute 02/07/18) B12 deficiency (Chronic 02/13/14) Essential hypertension (Chronic) definitely has white coat hypertension Hyperlipidemia (Chronic) elevated triglycerides Medical History Chronic sinusitis Elevated C-reactive protein (11/24/17) Herpes zoster (04/13/11) Intussusception of intestine (05/12/83) Other specified 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 12/24/[address] 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 BRITO; RIGHT EYE 12/24/14; DR. BRITO; LEFT EYE Family History Mother , OLD AGE at age 93. Essential hypertension Dementia Father , 90 Stroke Acute cholecystitis Sister No problems noted. Maternal Grandfather , 60s Heart disease Paternal Grandfather , 70s Stroke Maternal Grandmother Colon cancer Paternal Grandmother Stroke Sister , 53 Breast cancer Sister No problems noted. Sister No problems noted. Sister Asthma Brother No problems noted. Brother No problems noted. Son Cancer Daughter No problems noted. Daughter No problems noted. Social History (Updated 12/18/24 @ 13:09 by lEinor Viramontes) Smoking/Tobacco Use Status: Never Second Hand Exposure: No Smoking risk assessment performed?: Yes Alcohol Intake: never Drug use: Never Substance use type: does not use Adopted: No Caregiver/Support person: No Household members: none Housing: house Number of Children: 3 number of grandchildren: 7 Communication Needs: Corrective Lenses Education Level: high school Do you need help understanding health information?: Often current occupation: Retired Pets and animals: No Sexually active: No Do you think of yourself as: straight/heterosexual Current gender identity: female What is your relationship status?: How often do you talk on the phone with friends or family?: three or more times per week How often do you get together with friends or relatives?: decline to answer How often do you attend caodaism or rastafari services?: decline to answer Do you belong to any clubs or organized social groups?: decline to answer Panel score (0-1 are the most socially isolated patients): 1 What type of physical activity do you participate in: other Details: Gardening Duration: decline to answer Frequency: decline to answer Payton/Religious: Non temple Special payton needs: No Agree to transfusion: Yes Seatbelt use: always Helmet use: No Drive intox or ride w/intox milk tanker driver: No Working smoke detector in home: Yes Carbon monox detector in home: Yes Firearms in home: No Do you feel safe at home: Yes Victim of physical abuse: No Victim of emotional abuse: No Victim of sexual abuse: No Would you like helpful sources: No
--- NOTE | 2025-05-16 10:20 | DSE_ITS ---
Date of service: 05/16/25 Time of Service: 13:13 DS: Diagnosis Discharge Diagnosis (1) TIA (transient ischemic attack): Status: Acute (2) Vertigo: Status: Acute (3) Headache: Status: Acute (4) Essential hypertension: Status: Chronic Discharge Plan Disposition Patient Disposition: Home W/Home Health Services Home Health Services: New Referral Anticipated Discharge Date/Time: 05/16/25 13:00 Condition: Improving Discharge Details Reason For Visit: TIA, Hypertension Admit Date/Time: 05/15/25 14:25 Admit Provider: Ton Pimentel Attending Provider: Ton Pimentel Primary Care Provider: Evangelina Cerrato Hospital Course Hospital Course: This 89-year-old female with a past medical history of polymyalgia rheumatica, TIA, hypertension with anti-hypertensive medical therapy non-compliance , and hyperlipidemia presented to the ED on 05/15/2025 with acute onset vertigo and a mild frontal headache starting in the night and dizziness lasting 1?2 hours and resolving spontaneously. Home blood pressures reported to be in the 200 systolic, and presenting with BP 218/92. Head and neck CT/CTA were negative for acute findings. Work-up in The ED was negative for ACS as per EKG and troponin, and laboratory results were otherwise unremarkable. As per ABCD2 score of 4 and recommendations for DAPT, statins and stroke work-up the patient was admitted to the medical surgical floor by the hospitalist service on telemetry. MRI of the brain w/o acute findings but positive for microvascular ischemic disease. Telemetry remained in SR w/o arrhythmia. Echocardiogram showed no PFO, LVEF 55-60%. The patient was counseled about antihypertensive medicine compliance. Also instructed to pursue shared decision making process with outpatient providers prior to stopping any pharmacological therapy. Physical therapy recommendation is for home health physical therapy, home health nursing will also be beneficial to new medication therapy and compliance. The patient is hemodynamically stable and will be discharged home today and will nee a hollow up with her PCP with 7 days of discharge. 30-day cardiac event monitor ordered. Discussed with Dr Pimentel Recommendations for Follow Up Recommended tests to be ordered by follow up provider: Neurology referral needed, Satin therapy monitoring, Triglycerides were 200 Home Meds and New Rx's Prescriptions: New atorvastatin 40 mg Tablet 80 mg PO QPM Qty: 60 0RF clopidogrel 75 mg Tablet 75 mg PO DAILY Qty: 21 0RF aspirin 81 mg tablet,delayed release (DR/EC) 81 mg PO DAILY Qty: 28 0RF Continued leucovorin calcium 5 mg tablet 10 mg PO .qMonday Rasuvo (PF) 10 mg/0.2 mL auto-injector 10 mg subcut QWEEK cyanocobalamin (vitamin B-12) [Vitamin B-12] 1,000 MCG tablet 1,000 mcg PO DAILY acetaminophen [Tylenol Extra Strength] 500 mg tablet 1,000 mg PO TID PRN amlodipine 5 mg tablet 5 mg PO DAILY Patient Comments: TAKE ONE TABLET BY MOUTH EVERY DAY Discharge Instructions Additional Instructions: . Stand Alone Forms: Portal Information Referrals: Evangelina Cerrato MD, [place] [Primary Care Provider, Medicine] Referral Note: Follow-up with 7 days of discharge Activity:: Activity as Tolerated Equipment/Supplies:: Walker Diet:: heart healthy Discharge Orders Other Ambulatory Orders: Cardiac Event Recorder (NOW) Timeframe: [id number] Facility: [facility] - Location: Respiratory Therapy Ordered By: Arlet Andujar DS: Summary Time Spent with Patient providing and/or coordinating discharge services: Greater than 30 minutes Status at Discharge Functional status at discharge: uses cane/walker Overall status at discharge: patient is progressing back to baseline Mental Status: mental status grossly normal Speech and Movement: speech and movement normal Mood: congruent mood Affect: normal affect Quality:SDOH Health Related Social Needs: Health related social needs lonely/isolated Exam Narrative Exam Narrative: Patient in recliner, w/o acute distress, cranial nerve II to XII intact, negative NIHS scale/score, no JVD, no meningeal signs, S1,S2 no murmur, SR on telemetry, unlabored breathing, clear lungs, abdomen non-distended, soft , non-tender- bowel sounds are present, no CVA tenderness, moves upper and lower ext equally respectitively. Psych Mental Status: mental status grossly normal Speech and Movement: speech and movement normal Mood: congruent mood Affect: normal affect DS: Data Vitals/I&O Vitals and I&O: Vital Signs Temperature 36.7 C 05/16/25 07:23 Temperature Source Temporal Artery Scan 05/16/25 07:23 Pulse 74 05/16/25 07:23 Pulse Rhythm Regular 05/15/25 16:46 Pulse 67 05/15/25 13:00 Respiratory Rate 18 12/04/25 07:23 Respiratory Effort Normal, Non-Labored 05/15/25 16:46 Respiratory Depth Normal 05/15/25 16:46 Respiratory Pattern Normal 05/15/25 16:46 Blood Pressure 155/85 H 05/16/25 07:23 Blood Pressure Mean 108 05/16/25 07:23 Blood Pressure Position Supine 05/15/25 16:13 Pulse Oximetry 95 05/16/25 07:23 Oxygen Delivery Method Room Air 05/16/25 07:23 Oxygen Flow Rate 0 05/16/25 07:23 Pain Level 5 05/15/25 22:37 Intake & Output 05/15/25 05/15/25 05/16/25 11:59 23:59 11:59 Intake Total 1170 1160 / 1170 480 / 480 Balance 10 1170 1160 / 1170 480 / 480 Weight 68.039 kg 69.037 kg Intake: IV 10 / 1170 1160 / 1170 Oral 480 / 480 Other: Urine Color Pale Yellow Yellow Urine Appearance Clear Cloudy Urine Odor Normal Normal Comment pt voided in the toliet...unknown amount measured Stool Size Moderate Stool Characteristics Soft Data Completed and Pending Pending Labs at Discharge: 05/15/25 05/15/25 05/15/25 11:35 11:58 12:15 WBC 10.40 RBC 4.53 Hgb 12.7 Hct 39.3 MCV 87 MCH 28.0 MCHC 32.3 RDW 13.4 Plt Count 195 MPV 9.9 Immature Gran % 0.3 Neutrophils % 68.4 Lymphocytes % 24.2 Monocytes % 5.4 Eosinophils % 1.3 Basophils % 0.4 Nucleated RBC % 0.0 Absolute Neutrophils 7.11 H Absolute Lymphocytes 2.52 Absolute Monocytes 0.56 Absolute Eosinophils 0.14 Absolute Basophils 0.04 Sodium Cancelled 141 Potassium Cancelled 4.1 Chloride Cancelled 107 Carbon Dioxide Cancelled 25.0 Anion Gap Cancelled 9 BUN Cancelled 18 Creatinine Cancelled 1.17 H Est GFR (CKD-EPI 2020) Cancelled 43.69 Glucose Cancelled 93 Hemoglobin A1c Calcium Cancelled 9.4 Magnesium Cancelled 1.7 Total Bilirubin Cancelled 0.40 AST Cancelled 22 ALT Cancelled 16 Alkaline Phosphatase Cancelled 96 Troponin I Cancelled 5 NT-Pro-B Natriuret Pep Cancelled 702 H Total Protein Cancelled 6.9 Albumin Cancelled 3.6 Triglycerides Total Cholesterol LDL Cholesterol, Calc HDL Cholesterol Urine Color Yellow Urine Clarity Clear Urine pH 5.5 Ur Specific [place] <= 1.005 Urine Protein Negative Urine Ketones Negative Urine Blood Negative Urine Nitrite Negative Urine Bilirubin Negative Urine Urobilinogen 0.2 Ur Leukocyte Esterase Negative Urine Glucose Negative 05/15/25 05/15/25 05/16/25 12:57 14:50 05:36 WBC RBC Hgb Hct MCV MCH MCHC RDW Plt Count MPV Immature Gran % Neutrophils % Lymphocytes % Monocytes % Eosinophils % Basophils % Nucleated RBC % Absolute Neutrophils Absolute Lymphocytes Absolute Monocytes Absolute Eosinophils Absolute Basophils Sodium 142 Potassium 3.9 Chloride 108 H Carbon Dioxide 25.0 Anion Gap 9 BUN 19 Creatinine 1.13 H Est GFR (CKD-EPI 2020) 45.48 Glucose 96 Hemoglobin A1c 5.5 Calcium 8.9 Magnesium Total Bilirubin AST ALT Alkaline Phosphatase Troponin I 7 9 NT-Pro-B Natriuret Pep Total Protein Albumin Triglycerides 200 H Total Cholesterol 193 LDL Cholesterol, Calc 96.8 HDL Cholesterol 56 Urine Color Urine Clarity Urine pH Ur Specific [place] Urine Protein Urine Ketones Urine Blood Urine Nitrite Urine Bilirubin Urine Urobilinogen Ur Leukocyte Esterase Urine Glucose PFSH All Active Problems (Updated 05/16/25 @ 13:45 by Arlet Andujar APRN) Headache (Acute) Vertigo (Acute) TIA (transient ischemic attack) (Acute) Dizziness (Acute) Alteration in speech (Acute) Speech and language deficits (Acute) Speech disturbance (Acute) Confusion and disorientation (Acute) Memory changes (Acute) Speech abnormality (Acute) Syncope (Chronic) Chronic left SI joint pain (Acute) Anorexia (Acute) Closed fracture of right proximal humerus (Acute ~06/10/23) Abnormal CT scan (Acute) Inflammatory polyarthritis (Acute) Vitamin D deficiency (Acute) Elevated serum creatinine (Acute) Elevated glucose (Acute) Hip pain, bilateral (Acute) Acute bilateral low back pain (Acute) Pelvic pain (Acute) 11/2020. Nl Pelvic/Abd CT scan. 01/2021. Nl pelvic exam. No prolapse. Polymyalgia rheumatica (Acute) UTI (urinary tract infection) (Acute) Abdominal pain (Acute) Elevated sed rate (Acute) Arthralgia (Acute) URI (upper respiratory infection) (Acute) Wrist arthritis (Acute) Knee pain (Acute) Neck pain (Acute 05/12/00) Other specified disease of nail (Acute) Trochanteric bursitis (Acute 07/01/15) Cheek mass (Acute) Arm skin lesion, left (Acute 02/07/18) B12 deficiency (Chronic 02/13/14) Essential hypertension (Chronic) definitely has white coat hypertension Hyperlipidemia (Chronic) elevated triglycerides Medical History Chronic sinusitis Elevated C-reactive protein (11/24/17) Herpes zoster (04/13/11) Intussusception of intestine (05/12/83) Other specified 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 12/24/[address] 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 BRITO; RIGHT EYE 12/24/14; DR. BRITO; LEFT EYE Family History Mother , OLD AGE at age 93. Essential hypertension Dementia Father , 90 Stroke Acute cholecystitis Sister No problems noted. Maternal Grandfather , 60s Heart disease Paternal Grandfather , 70s Stroke Maternal Grandmother Colon cancer Paternal Grandmother Stroke Sister , 53 Breast cancer Sister No problems noted. Sister No problems noted. Sister Asthma Brother No problems noted. Brother No problems noted. Son Cancer Daughter No problems noted. Daughter No problems noted. Social History (Updated 12/18/24 @ 13:09 by Elinor Viramontes) Smoking/Tobacco Use Status: Never Second Hand Exposure: No Smoking risk assessment performed?: Yes Alcohol Intake: never Drug use: Never Substance use type: does not use Adopted: No Caregiver/Support person: No Household members: none Housing: house Number of Children: 3 number of grandchildren: 7 Communication Needs: Corrective Lenses Education Level: high school Do you need help understanding health information?: Often current occupation: Retired Pets and animals: No Sexually active: No Do you think of yourself as: straight/heterosexual Current gender identity: female What is your relationship status?: How often do you talk on the phone with friends or family?: three or more times per week How often do you get together with friends or relatives?: decline to answer How often do you attend confucianism or mormonism services?: decline to answer Do you belong to any clubs or organized social groups?: decline to answer Panel score (0-1 are the most socially isolated patients): 1 What type of physical activity do you participate in: other Details: Gardening Duration: decline to answer Frequency: decline to answer Payton/Worship: Non mormonism Special payton needs: No Agree to transfusion: Yes Seatbelt use: always Helmet use: No Drive intox or ride w/intox otr van cdl truck driver: No Working smoke detector in home: Yes Carbon monox detector in home: Yes Firearms in home: No Do you feel safe at home: Yes Victim of physical abuse: No Victim of emotional abuse: No Victim of sexual abuse: No Would you like helpful sources: No Time Spent with Patient Time Spent with Patient: >85 minutes Time was spent: preparing to see the patient(eg.review tests), obtaining and/or reviewing separately otained hiistory, ordering medications,tests, procedures, referring, communicating with other health child care supervisor, indepentently interpreting results, counseling the patient, care coordination and other
--- NOTE | 2025-05-16 12:04 | PDOC.HHF2F_ITS ---
Date of service: 05/16/25 Time of Service: 12:04 Home Health Referral Home Health Orders Clinical synopsis of why skilled professionals are needed: This 89-year-old female with a past medical history of polymyalgia rheumatica, TIA, hypertension with anti-hypertensive medical therapy non-compliance , and hyperlipidemia presented to the ED on 05/15/2025 with acute onset vertigo and a mild frontal headache starting in the night and dizziness lasting 1?2 hours and resolving spontaneously. Home blood pressures reported to be in the 200 systolic, and presenting with BP 218/92. Head and neck CT/CTA were negative for acute findings. Work-up in The ED was negative for ACS as per EKG and troponin, and laboratory results were otherwise unremarkable. As per ABCD2 score of 4 and recommendations for DAPT, statins and stroke work-up the patient was admitted to the medical surgical floor by the hospitalist service on telemetry. MRI of the brain w/o acute findings but positive for microvascular ischemic disease. Telemetry remained in SR w/o arrhythmia. Echocardiogram showed no PFO, LVEF 55-60%. The patient was counseled about antihypertensive medicine compliance. Also instructed to pursue shared decision making process with outpatient providers prior to stopping any pharmacological therapy. Physical therapy recommendation is for home health physical therapy, home health nursing will also be beneficial to new medication therapy and compliance. The patient is hemodynamically stable and will be discharged home today and will nee a hollow up with her PCP with 7 days of discharge. 30-day cardiac event monitor ordered. Discussed with Dr Pimentel Registered Nurse: Check all that apply Instruct on new or changed medication(s)/assess compliance: Ordered Assess for exacerbation of medical condition, instruct patient/caregivers on signs and symptoms to report for early detection: Ordered Physical Therapist: Check all that apply Increase strength & endurance for safe mobility at home: Ordered To design/establish home maintenance program: Ordered Home safety evaluation and teaching/gait training including stair management (if applicable): Ordered Home Bound Status Requires the aid of supportive device (check all that apply): Walker Describe why leaving home would require a considerable and taxing effort: Requires frequent rest periods Encounter Date and Reason: I certify that a FTF encounter for this patient was performed on May 16, 2025 and that such encounter was related to the primary reason the patient requires home health services. The encounter was conducted in the following manner: * By me as the certifying physician, CONTACT LENS CUTTER, PA or * By an inpatient physician, CONTACT LENS CUTTER or PA during an inpatient stay who communicated findings to me, Certification And Authentication I certify that I composed the above information based on my clinical judgment relating to this patient's medical condition and, if applicable, clinical findings communicated to me by the NPP or inpatient physician who performed the FTF encounter. Name of Provider that will be monitoring home health services: Evangelina Cerrato
[2025-05-16] MEDS: amLODIPine 5 MG TAB PO (13:50)
--- NOTE | 2025-05-16 16:29 | PDOC.CMDIS ---
Date of service: 05/16/25 Time of Service: 16:29 LACE Index Scoring Tool Questions: Length of Stay (in days): 1 Was the patient admitted via the E.D.?: Yes Comorbidities: Cerebrovascular Disease E.D. Visits: 1 Answers: Total Score: 6 Risk of Readmission: Low Risk Care Management Discharge Plan Reason for Hospitalization: TIA Discharge Plan: Dorothy was discharged home earlier today with new HC services of SN and PT. She was happy to be going home, and happy that her findings were such to support that. Dorothy will need to f/u with her PCP, and it was recommended that her PCP refer to neurology. Dorothy was transported home by her daughter and son-in-law. Patient/Family Education Needs: Review of discharge instructions, activity, limitations, and discuss Ask me 3. Services Needed at Discharge: Home Health Care Services (SN, PT) SDOH Health Related Social Needs: Health related social needs lonely/isolated
--- NOTE | 2025-05-18 09:07 | NUR.NOTE ---
Access chart to reconcile EKG orders with EKG's in [facility]. Nursing Note:
== END 2025-05-16 15:25 | disposition home health service (06) ==
LOC: ER 14:31 → MS 16:40
PROVIDERS: Admitting Provider Family Medicine; Emergency Provider General Practice; PCP Family Medicine; Responsible Provider Nurse Practitioner Acute Care; Visit Provider Family Medicine
DX: G45.9 Transient cerebral ischemic attack, unspecified (principal); R42 Dizziness and giddiness; I10 Essential (primary) hypertension; R51.9 Headache, unspecified; M35.3 Polymyalgia rheumatica; E78.5 Hyperlipidemia, unspecified; I67.89 Other cerebrovascular disease; Z66 Do not resuscitate; R41.3 Other amnesia; E55.9 Vitamin D deficiency, unspecified; E53.8 Deficiency of other specified B group vitamins; Z79.899 Other long term (current) drug therapy
CPT/HCPCS: 00123; 36415; 70496; 70498; 80048; 80053; 80061; 93005; 93270; 93306; 96365; 96366; 96367; 96375; 97162; 97530; 99285; J1650; 70551; 71046; 81003; 83036; 83735; 83880; 84484; 85025; 93010; 99222; 99239; G0378; J0131; J2060; J3475; J3490

== ENCOUNTER 2025-06-12 02:48 | Outpatient (CLI) | payer MEDICARE, SELFPAY ==
[2025-06-12 12:39] LABS: Abs Immature Grans 0.03 10^3/uL (0.0-0.06); HCT 42.2 % (36.0-46.0); HGB 13.2 g/dL (11.2-15.7); Immature Grans % 0.3 %; MCH 27.7 pg (27.0-33.0); MCHC 31.3 % (32.0-36.0); MCV 89 fL (80-95); MPV 10.1 fL (8.0-11.0); Platelet Count 215 10^3/uL (130-400); RBC 4.77 10^6/uL (3.93-5.22); RDW 13.3 % (11.7-14.6); RDW-SD 43.3 fL; WBC 9.02 10^3/uL (4.4-10.8)
[2025-06-12 13:13] LABS: ALT 30 U/L (10-49); AST 31 U/L (<34); Albumin 4.1 g/dL (3.2-5.0); Alkaline Phosphatase 102 U/L (46-116); Anion Gap 9.3 mmol/L (3-11); BUN 24 mg/dL (9-23); Bilirubin, Total 0.5 mg/dL (0.2-1.2); CO2 27.7 mmol/L (20.0-31.0); Calcium 9.7 mg/dL (8.3-10.6); Chloride 104 mmol/L (98-107); Glucose 116 mg/dL (74-106); Potassium 4.4 mmol/L (3.5-5.1); Sodium 141 mmol/L (136-145); Total Protein 7.4 g/dL (5.7-8.2)
== END 2025-06-12 02:49 | disposition home or self-care (01) ==
LOC: LBO 02:53
PROVIDERS: PCP Family Medicine; Visit Provider Internal Medicine Rheumatology
DX: M06.4 Inflammatory polyarthropathy (principal)
CPT/HCPCS: 36415; 80053; 85025